=== PATIENT | male | born 1950 | race Caucasian/White ===

== ENCOUNTER → 2021-11-08 | Outpatient (CLI) | payer MEDICARE ==
[~2021-11-08] MED LIST: ACHD5005 PO; AMLO1CAP31 PO; ASP81TEC PO; CARV25TA PO; CARV6.252 PO; CLN.1T PO; DOXY-13 PO; FURO40TA4 PO; GLIM4TAB PO; HYDR-34 PO; LISI10TA PO; LORA10TA7 PO; METF-380 PO; NFNEB10T PO; OXYC-12 PO; POTA10CA43 PO; ROSU10TA12 PO; SPRN25T GT; SULF1TAB35 PO; SULF500T3 PO; TRAM50TA2 PO
== END ==
LOC: WOUNDCARE 12:22
PROVIDERS: ATTEND Family Medicine
DX: E11.52 Type 2 diabetes mellitus with diabetic peripheral angiopathy with gangrene (principal); E11.621 Type 2 diabetes mellitus with foot ulcer; I70.261 Atherosclerosis of native arteries of extremities with gangrene, right leg; L97.518 Non-pressure chronic ulcer of other part of right foot with other specified severity; I69.951 Hemiplegia and hemiparesis following unspecified cerebrovascular disease affecting right dominant side; L60.0 Ingrowing nail; L84 Corns and callosities
CPT/HCPCS: 99202

== ENCOUNTER → 2021-11-15 | Outpatient (CLI) | payer MEDICARE | LOC: WOUNDCARE 10:19 | PROVIDERS: ATTEND Family Medicine | DX: I70.235 Atherosclerosis of native arteries of right leg with ulceration of other part of foot (principal); I69.351 Hemiplegia and hemiparesis following cerebral infarction affecting right dominant side; E11.621 Type 2 diabetes mellitus with foot ulcer; L60.0 Ingrowing nail; L84 Corns and callosities | CPT/HCPCS: 99212 ==

== ENCOUNTER → 2021-12-07 | Outpatient (CLI) | payer MEDICARE ==
[~2021-12-07] VITALS: Ht 175 cm; Wt 89.0 kg
[~2021-12-07] MED LIST changes: +CATHETER FLUSH 10 ML SYR IVP PRN; +REGADENOSON 0.4 MG/5 ML SYR (LEXISCAN) IV ONE
[2021-12-07 13:34] VITALS: BP 220/74
--- NOTE | 2021-12-07 15:53 | Cardiology Stress Test Report ---
Stress Test Report Date of Procedure/Referring: Date of Procedure: Dec 07, 2021 PCP Jorje Carrion MD Admitting Physician Kyle Lawton MD Indications: HTN Baseline Heart Rate: 61 Baseline Blood Pressure: Blood Pressure Systolic: 220 Blood Pressure Diastolic: 74 Baseline Vitals Vital Signs Date Time Temp Pulse Resp B/P (MAP) Pulse Ox O2 Delivery O2 Flow Rate FiO2 12/07/21 13:34 61 220/74 (122) 98 Baseline EKG: Baseline EKG: NSR Summary After explaining the procedure to the patient, he signed a consent and then brought to the stress nuclear laboratory. Patient received 0.4 mg Lexiscan for stress test, ECG, heart rate and blood pressure were monitored continuously. Resting and stress dose of radio tracer were injected, imaging was acquired and reviewed in short axis, horizontal long axis and vertical long axis views. TID: 1.07 SSS: 10 SDS: 2 EF: 56 1. Patient tolerated Lexiscan well 2. Reversible ischemia involving the anterior wall and anterior lateral wall 3. Normal left ventricular size, EF 56% JORJE CARRION MD Dec 07, 2021 15:53
== END ==
LOC: CARD 11:30
PROVIDERS: ATTEND Internal Medicine Cardiovascular Disease
DX: I08.0 Rheumatic disorders of both mitral and aortic valves (principal); I11.9 Hypertensive heart disease without heart failure; I25.10 Atherosclerotic heart disease of native coronary artery without angina pectoris
CPT/HCPCS: 78452; 93017; 93306; A9502

== ENCOUNTER 2021-12-15 12:30 | Inpatient (IN) | payer MEDICARE ==
[~2021-12-15] VITALS: Ht 175.3 cm; Wt 8.9 kg
--- NOTE | 2021-12-15 12:28 | PM&R Post Admission Assessment ---
PM&R HP Date of Visit: Dec 15, 2021 Time of Visit: 14:00 History of Present Illness Chief complaint: Debility following left leg fasciotomy on 12/09/2021 complications from peripheral vascular procedure History present illness: This is a 71-year-old white male clinic patient of Dr. Lawton and Dr. Carrion who presented to inpatient rehab from [facility] due to debility from left leg fasciotomy on 12/09/[address] Isaac following a popl iteal artery complication during a vascular procedure for peripheral vascular disease. He has a history of a CVA with right-sided weakness and bypass surgery and postop day #2 suffered a stroke. No residual deficits noted from the acute stroke. Wound vacuum was placed on the left leg. He did receive transfusions. He will be monitored closely. Wound VAC management per Dr. Pena. CC: Debility s/p L leg Fasciotomy on 12/09/21 HPI: 71yo M with history of HTN, HLD, CVA with residual right sided weakness, CABG, and CAD presents debility from L leg fasciotomy on 12/09/[address] Isaac at [facility]. Admitted to for elective heart cath/L leg intervention and developed perforation of L popliteal artery and compartment syndrome. Hospital course: POD2 - stroke code. NIH 0. No focal deficits morning after; POD 3 - wound vac placement; POD 5 - Hbg 7.1, 2u PRBC received. Significant decline in functional mobility noted and admitted to inpatient rehab at [facility] in [place], [place] on 12/15/21. Reports previously independent with all ADLs without the use of assistive devices. PMH: CAD, HTN, T2DM PSH: CABG Allergies: NKDA Meds: Allopurinol 300mg PO HS Atorvastatin 40mg PO HS Carvedilol 25mg PO BID Eplerenone 50mg PO Furosemide 40mg PO QAM Glimepiride 4mg PO QAM Lisinopril 20mg PO QAM Loratadine 10mg PO QAM PRN Metformin 750mg PO HS Naproxen 500mg PO BID PRN Aspirin 81mg PO Clopidogrel 75mg PO SH: Former smoker ROS: Constitutional: No chills, No fever, No weakness EENTM: No ear pain, No blurred vision, No eye pain, No throat pain Respiratory: No cough, No hemoptysis, No short of breath Cardiovascular: No chest pain; edema (L Ankle); No palpitations Gastrointestinal: No constipation, No diarrhea, No nausea, No vomiting Genitourinary: No dysuria, No frequency, No incontinence Musculoskeletal: No back pain, No muscle pain, No neck pain Skin: lesions (Medial L distal extremity); No lumps, No rash Psychiatric/Neurological: Denies Headache, Denies Numbness, Denies Tingling Exam: General Appearance: No Apparent Distress, Chronically ill HEENT: PERRL/EOMI, Pharynx Normal Neck: Full Range of Motion, Normal Inspection, Non Tender, Supple Respiratory: Chest Non Tender, Lungs Clear, Normal Breath Sounds, No Accessory Muscle Use, No Respiratory Distress Cardiovascular: Regular Rate, Rhythm Gastrointestinal: Normal Bowel Sounds, Non Tender, Soft Back: Normal Inspection, No Vertebral Tenderness Extremity: Normal Capillary Refill, Normal Inspection, Normal Range of Motion, Pedal Edema, Other (L distal LE wound) Neurologic/Psychiatric: Alert, Oriented x3, Normal Mood/Affect, Motor Weakness (Residual R sided weakness from CVA 1999 and 2014) Skin: Normal Color, Warm/Dry Lymphatic: No Adenopathy Assessment: Debility s/p L Leg fasciotomy by Dr. Isaac on 12/09/21 s/p L popliteal-peroneal atherectomy complicated by fracture of CSI wire and vessel rupture by Dr. Christie 12/09/21 Acute blood loss anemia, transfused 2 unit PRBC on 12/14/21 Wound vac placement L Leg T2DM CAD Carotid Artery Stenosis PAD HLD HTN CVA (1999 and 2014) Plan: PT/OT Consult cardiology Wound care consult for possible wound vac placement Control blood sugars Past Judmfqm-Fcefdl-Twiauc Hx Past Med/Social Hx: Reviewed Nursing Past Med/Soc Hx, Reviewed and Corrections made Patient Social History Marrital Status: Employed/Student: retired Alcohol Use: Denies Use Smoking Status: Former Smoker Immunizations Up To Date Date of Pneumonia Vaccine: Sep 27, 2011 Date of Influenza Vaccine: Jul 18, 2013 Past Medical History Surgeries: Cardiac, CABG, Vascular Surgery Cardiac: Chronic Edema/Swelling, Coronary Artery Disease, High Cholesterol, Hypotension, Peripheral Vascular, Valvular Heart Disease Neurological: Stroke Reproductive: No Genitourinary: Benign Prostatic Hyperpl Gastrointestinal: Gastroesophageal Reflux Musculoskeletal: Arthritis PM&R Allergy/Meds/Data Review Allergies Coded Allergies: No Known Drug Allergies (Unverified , 10/15/11) Home Medications Scheduled Allopurinol (Allopurinol), 300 MG PO HS, (Reported) Aspirin (Aspirin EC), 81 MG PO DAILY, (Reported) Atorvastatin Calcium (Atorvastatin Calcium), 80 MG PO DAILY, (Reported) Carvedilol (Carvedilol), 25 MG PO BID, (Reported) Clopidogrel Bisulfate (Clopidogrel), 75 MG PO DAILY, (Reported) Eplerenone (Eplerenone), 50 MG PO DAILY, (Reported) Furosemide (Furosemide), 40 MG PO DAILY, (Reported) Glimepiride (Glimepiride), 4 MG PO DAILY, (Reported) Lisinopril (Lisinopril), 20 MG PO DAILY, (Reported) Lutein (Lutein), 20 MG PO DAILY, (Reported) Metformin HCl (Metformin HCl ER), 750 MG PO HS, (Reported) Multivitamin with Minerals (Multivitamins with Minerals), 1 EACH PO DAILY, (Rep orted) Scheduled PRN Loratadine (Loratadine), 10 MG PO DAILY PRN for ALLERGY SYMPTOMS, (Reported) Mupirocin Calcium (Mupirocin), 1 APPLIC TP TID PRN for SKIN INFECTION, (Reported) Naproxen (Naproxen), 500 MG PO BID PRN for PAIN-MILD (1-4), (Reported) Discontinued Medications Carvedilol (Carvedilol), 1 EACH PO BID, (Reported) Discontinued Reason: No Longer Taking Furosemide (Furosemide), 1 EACH PO DAILY, (Reported) Discontinued Reason: No Longer Taking Glimepiride (Glimepiride), 4 MG PO DAILY, (Reported) Discontinued Reason: No Longer Taking Lisinopril (Prinivil), 20 MG PO DAILY, (Reported) Discontinued Reason: No Longer Taking Loratadine (Loratadine), 10 MG PO BID, (Reported) Discontinued Reason: No Longer Taking Metformin Hcl (Metformin 1000 Mg), 1 EACH PO DAILY, (Reported) Discontinued Reason: No Longer Taking Rosuvastatin Calcium (Crestor), 1 EACH PO HS, (Reported) Discontinued Reason: No Longer Taking Spironolactone (Aldactone Tablet), 25 MG GT DAILY, (Reported) Discontinued Reason: No Longer Taking Current Medications Current Medications Reviewed Review of Systems Constitutional: see HPI, malaise, weakness EENTM: no symptoms reported Respiratory: no symptoms reported Cardiovascular: no symptoms reported Gastrointestinal: no symptoms reported Genitourinary: no symptoms reported Musculoskeletal: back pain Skin: see HPI Psychiatric/Neurological: Depressed All Other Systems Reviewed Negative Unless Noted: Yes Physical Exam Physical Exam Vital Signs Capillary Refill : Height, Weight, BMI Height: 5'9.00" Weight: 200lbs. oz. [id number]; 29.06 BMI Method:Stated General Appearance: No Apparent Distress, WD/WN, Anxious, Chronically ill, Ob diamante Eyes: Bilateral Eye Normal Inspection, Bilateral Eye PERRL HEENT: PERRL/EOMI, Normal ENT Inspection, Pharynx Normal Neck: Full Range of Motion, Normal Inspection, Non Tender, Supple, Carotid Bruit Respiratory: Chest Non Tender, Lungs Clear, Normal Breath Sounds, No Accessory Muscle Use, No Respiratory Distress Cardiovascular: Regular Rate, Rhythm, No Edema, No Gallop, No JVD, No Murmur, Normal Peripheral Pulses Gastrointestinal: Normal Bowel Sounds, No Organomegaly, No Pulsatile Mass, Non Tender, Soft Back: Normal Inspection, No CVA Tenderness, No Vertebral Tenderness Extremity: Normal Capillary Refill, Normal Inspection, Normal Range of Motion, Non Tender, No Calf Tenderness, No Pedal Edema Neurologic/Psychiatric: Alert, Oriented x3, No Motor/Sensory Deficits, shield installer II- XII Norm as Tested, Abnormal Gait, Depressed Affect, Motor Weakness (Right- sided) Skin: Normal Color, Warm/Dry, Other (Left lower extremity bandage intact) Lymphatic: No Adenopathy PM&R Medical Assessment & Plan REHAB/MEDICAL ASSESSMENT AND PLAN: REHAB IMPAIRMENT GROUP: Left leg fasciotomy with right-sided stroke acute on chronic ETIOLOGIC DIAGNOSIS: Left leg fasciotomy with right-sided stroke acute on chronic The comorbidities that impact the patients function and/or functional outcome by: Previous CVA with right-sided weakness now with acute CVA left-sided fasciotomy requiring wound VAC REHAB PLAN: The patient is being admitted to our comprehensive inpatient rehabilitation facility and can tolerate the intensity of service consisting of at least: 180 minutes of therapy a day, 5 out of 7 days a week Rehab treatment will consist of: PT and OT will focus on regaining function with use of assistive devices while managing wound VAC connection to left lower extremity The patient/family has a good understanding of our discharge process and will benefit from an interdisciplinary inpatient rehabilitation program. The patient has potential to make improvement and is in need of at least two of the following multidisciplinary therapies including but not limited to physical, occupational, speech, and prosthetics and orthotics. Additionally the patient will need services from respiratory, nutritional services, wound care, psychology, etc. (Customize this to each patient). Given the patients complex condition and risk of further medical complications, rehabilitation services cannot be safely or effectively provided at a lower level of care such as a group home facility. BARRIERS TO DISCHARGE: Wound VAC management ESTIMATED LOS: 7 days DISPOSITION: Home RELEVANT CHANGES SINCE PREADMISSION SCREENING: I have compared the patients medical and functional status at the time of the preadmission screening and there are: No changes PROGNOSIS: Good REHABILITATION GOALS: 1. PT and OT will focus on regaining function with use of assistive devices while managing wound VAC connection to left lower extremity All the above goals were reviewed with the patient and he/she is in agreement. By signing this document, I acknowledge that I have personally performed a full physical examination on this patient within 24 hours of admission to this inpatient rehabilitation facility and have determined the patient to be able to tolerate the above course of treatment at an intensive level for a reasonable period of time. I will be completing a detailed individualized Plan of Care for this patient by day #4 of the patients stay based upon the Preadmission Screen, the Post-Admission Evaluation, and the therapy evaluations. Admission Dx/Comorbidities: (1) Myopathy ICD Codes: G72.9 - Myopathy, unspecified Assessment/Plan Assessment and Plan Assess & Plan/Chief Complaint Assessment: Left lower extremity fasciotomy due to complications from peripheral vascular procedure by Dr. Isaac 12/09/2021 with wound VAC placement Acute CVA with no residual during acute episode of complication Chronic CVA with right-sided weakness Hypertension CAD Previous CABG Plan: Consult Dr. Carrion Supportive care Aggressive rehab Wound VAC SIDNEY ORR DO Dec 15, 2021 12:28
[~2021-12-15 12:30] MED LIST changes: +ACETAMINOPHEN 325 MG TABLET PO PRN; +ALLO300T2 PO; +ALPRAZolam 0.25 MG (XANAX) TAB PO PRN; +ASPI-1238 PO; +ATOR80TA76 PO; +BISACODYL 10 MG SUPP (DULCOLAX) PR PRN; +CALCIUM CARBONATE 500 MG (TUMS) TAB.CHEW PO PRN; -CATHETER FLUSH 10 ML SYR IVP PRN; +CLOP75TA28 PO; +DOCUSATE SODIUM 100 MG (COLACE) CAP PO PRN; +EPLE50TA3 PO; +FLEET ENEMA ADULT 1 EA BTL PR PRN; +GLIM4TAB5 PO; +LACTULOSE SYRUP 10GM/15ML (ENULOSE) 30ML UDC PO PRN; +LISI20TA26 PO; +LOPERAMIDE 2 MG (IMODIUM) TABLET PO PRN; +LUTE20TA PO; +MELATONIN 3 MG TABLET PO PRN; +METF750T45 PO; +MULT-166 PO; +MUPI15CR11 TP; +NAPR-915 PO; +ONDANSETRON 4 MG (ZOFRAN) ORAL DISSOLVE TAB PO PRN; -REGADENOSON 0.4 MG/5 ML SYR (LEXISCAN) IV ONE; +diphenhydrAMINE 25 MG TAB (BENADRYL) PO PRN; +guaiFENesin/CODEINE (ROBITUSSIN AC) 10ML UDC PO PRN
[2021-12-15] MEDS ORDERED: MUPIROCIN CALCIUM TP PRN (13:00)
[2021-12-15] MEDS ORDERED: NON-FORMULARY MEDICATION 1 EA EA (Naproxen 500 MG) PO PRN (13:00)
[2021-12-15] MEDS ORDERED: LORATADINE (CLARITIN) 10 MG TAB PO PRN (13:00)
[2021-12-15] MEDS ORDERED: MUPIROCIN 2% OINT 22 GM (BACTROBAN) TUBE TOP PRN (13:15)
[2021-12-15] MEDS ORDERED: NAPROXEN 250 MG (NAPROSYN) TABLET PO PRN (13:15)
[2021-12-15 13:30] VITALS: BP 167/71
--- NOTE | 2021-12-15 13:46 | Occupational Therapy Eval ---
OT Evaluation-General/PLF Medical Diagnosis Admission Date Dec 15, 2021 at 12:30 Medical Diagnosis: disuse myopathy Onset Date: Dec 09, 2021 Therapy Diagnosis Therapy Diagnosis: decreased ADL status Height/Weight Height (Feet): 5 Height (Inches): 9.00 Weight (Pounds): 200 Referral Physician: Rosario White Reason: Evaluation/Treatment Medical History Additional Medical History HTN, hyperlipidemia, CABG, CAD, CVA (1999 & 2004) with residual R side weakness Current History admitted with elective heart and leg intervention, developed perforation of L popliteal artery and underwent fasciotomy for compartment syndrome, wound VAC placed at OSH. Pt transferred to ARU 12/15/21 for continued skilled therapy and medication management Social History Home: Multilevel Current Living Status: Spouse (, daughter and grandson) Steps Into Home: 1 ADL-Prior Level of Function SCALE: Activities may be completed with or without assistive devices. 4-Patswirihy-liaukqg completes the activity by him/herself with no assistance from a helper. 5-Set-up or Clean-up Assistance-helper sets up or cleans up; patient completes activity. [place] assists only prior to or following the activity. 4-Supervision or Touching Assistance-helper provides verbal cues and/or touching/steadying and/or contact guard assistance as patient completes activity. Assistance may be provided throughout the activity or intermittently. 3-Partial/Moderate Assistance-helper does LESS THAN HALF the effort. [place] lif ts, holds or supports trunk or limbs, but provides less than half the effort. 2-Substantial/Maximal Assistance-helper does MORE THAN HALF the effort. [place] lifts or holds trunk or limbs and provides more than half the effort. 1-Tjurpdipl-uzdixw does ALL the effort. Patient does none of the effort to complete the activity. Or, the assistance of 2 or more helpers is required for the patient to complete the activity. If activity was not attempted, code reason: 7-Patient Refused. 9-Not Applicable-not attempted and the patient did not perform the activity before the current illness, exacerbation or injury. 10-Not Attempted due to Environmental Limitations-(lack of equipment, weather restraints, etc.). 88-Not Attempted due to Medical Conditions or Safety Concerns. ADL PLOF Comments Pt reports IND with ADLs and functional mobility at [facility], using 4WW for mobility. He lives in a 2 story house but primarily stays on the first level. He has a tub/shower and a walk in shower on the main level. The shower has a built in seat and he believes he owns a SC. Self Care: Independent Functional Cognition: Independent DME/Equipment: Bath Chair, Shower, Tub/Shower OT Current Status Mental Status/Objective Patient Orientation: Person, Place, Situation Current Glasses/Contacts: Yes Hearing Aids: No Dentures/Partials: Yes Hand Dominance: Right (has had to use L hand more since CVAs) Upper Extremity ROM WFL, BUE shoulder flexion to approx 150 degrees Upper Extremity Coordination decreased RUE, pt's RUE "lagged" behind the L with ROM, decreased gross grasp and fine motor in R hand. Upper Extremity Sensation WFL Upper Extremity Strength RUE grossly 3+/5 LUE grossly 4/5 ADL-Treatment Eating (QC): 6 (Per pt report) Oral Hygiene (QC): 5 (Per clincial judgment, set up seated) Shower/Bathe Self (QC): 3 (Min A with washing buttocks. Pt able to wash all other parts seated.) Upper Body Dressing (QC): 5 (set up) Lower Body Dressing (QC): 3 (Min A. pt able to doff pants, required assistance threading LLE into pants. Pt able to complete pant hike and thread RLE) On/Off Footwear (QC): 3 (Pt able to doff Bilateral shoes, required assistance donning L. Pt able to don R.) Toileting Hygiene (QC): 3 (Pt stood at toilet to urinate, able to manipulate clothes. Min A-CGA for balance.) Other Treatments OT evaluation complete. OT/PT cotreat due to skill of 2 clinicians required which a vocational rehabilitation counselor could not perform in order to coordinate UE/LEs, decrease fall risk and due to pt's limitations in strength, activity tolerance, transfers and mobility. OT focused on UE placement, cues for sequencing and safety, and ADLs, PT focused on LE placement, gross overall movement, transfers/mobility. Pt completed functional transfers/mobility in therapy gym including bed mobility, supine to/from sit transfers, functional mobility with FWW, sit to/from stand, uneven surface, and w/c mobility. Pt taken to his room, transferred to AL, doffed clothes, completed shower, then donned clothes as outlined above. Pt stood from AL, used FWW to stand at toilet to urinate, then transferred to /. Post tx, pt in w/c, all needs met, NOVAK present to continue cotreat. Education OT Patient Education: Correct positioning, Energy conservation, Exercise program, Modified ADL techniques, Progress toward Goal/Update tx plan, Purpose of tx/functional activities, Reviewed precautions Teaching Recipient: Patient Teaching Methods: Discussion Response to Teaching: Verbalize Understanding OT Short Term Goals Short Term Goals Time Frame: Dec 23, 2021 Shower/bathe self: 4 Lower body dressin Putting on/taking off footwear: 4 OT Prison Goals Federal Agent Goals Time Frame: Jan 06, 2022 Eating (QC): 6 Oral Hygiene (QC): 6 Toileting Hygiene (QC): 6 Shower/Bathe Self (QC): 6 Upper Body Dressing (QC): 6 Lower Body Dressing (QC): 6 On/Off Footwear (QC): 6 Additional Goals: 1-Demonstrate ADL Tasks, 2-Verbalize Understanding, 3-ImproveStrength/Robert 1=Demonstrate adherence to instructed precautions during ADL tasks. 2=Patient will verbalize/demonstrate understanding of assistive devices/modifications for ADL. 3=Patient will improve strength/tolerance for activity to enable patient to perform ADL's. OT Education/Plan Problem List/Assessment Assessment: Decreased Activ Tolerance, Decreased UE Strength, Impaired Coordination, Impaired Funct Balance, Impaired I ADL's, Impaired Self-Care Skills, Restricted Funct UE ROM Discharge Recommendations Plan/Recommendations: Continue POC Treatment Plan/Plan of Care Patient would benefit from OT for education, treatment and training to promote independence in ADL's, mobility, safety and/or upper extremity function for ADL's. Plan of Care: ADL Retraining, Functional Mobility, Group Exercise/Act as Ind, UE Funct Exercise/Act Treatment Duration: Jan 06, 2022 Frequency: At least 5 of 7 days/Wk (IRF) Estimated Hrs Per Day: 1.5 hours per day Agreement: Yes Rehab Potential: Fair Time/GCodes Start Time: 12:40 Stop Time: 13:40 Total Time Billed (hr/min): 60 Billed Treatment Time 4608-0229 OT eval, [id number] OT/PT cotreat. 1, EVM (10'), FA (20'), ADL 2 (30') NOE SPARKS OT Dec 15, 2021 13:46
--- NOTE | 2021-12-15 14:07 | Physical Therapy Evaluation ---
PT Evaluation-General Medical Diagnosis Admission Date Dec 15, 2021 at 12:30 Medical Diagnosis: disuse myopathy Onset Date: Dec 09, 2021 Therapy Diagnosis Therapy Diagnosis: Impaired mobility, Strength, Ambulation, balance. Height/Weight Height (Feet): 5 Height (Inches): 9.00 Weight (Pounds): 200 Precautions Precautions/Isolations: Standard Precautions Weight Bear Status Full Weight Bearing Full Weight Bearing Referral Physician: Rosario Reason for Referral: Evaluation/Treatment Medical History Pertinent Medical History: CABG, CVA, HTN Current History admitted with elective heart and leg intervention, developed perforation of L popliteal artery and underwent fasciotomy for compartment syndrome, wound VAC placed at OSH. Pt transferred to ARU 12/15/21 for continued skilled therapy and medication management Reviewed History: Yes Social History Home: Multilevel Current Living Status: Spouse (, daughter and grandson) Entry Into Home: Stairs Without Railing PT Steps Into Home: 1 Prior Prior Level of Function SCALE: Activities may be completed with or without assistive devices. 8-Nktcniikmi-ppbwdjf completes the activity by him/herself with no assistance from a helper. 5-Set-up or Clean-up Assistance-helper sets up or cleans up; patient completes activity. [place] assists only prior to or following the activity. 4-Supervision or Touching Assistance-helper provides verbal cues and/or touching/steadying and/or contact guard assistance as patient completes activity. Assistance may be provided throughout the activity or intermittently. 3-Partial/Moderate Assistance-helper does LESS THAN HALF the effort. [place] lifts, holds or supports trunk or limbs, but provides less than half the effort. 2-Substantial/Maximal Assistance-helper does MORE THAN HALF the effort. [place] lifts or holds trunk or limbs and provides more than half the effort. 7-Ybnyvobhv-rhtaeu does ALL the effort. Patient does none of the effort to complete the activity. Or, the assistance of 2 or more helpers is required for the patient to complete the activity. If activity was not attempted, code reason: 7-Patient Refused. 9-Not Applicable-not attempted and the patient did not perform the activity before the current illness, exacerbation or injury. 10-Not Attempted due to Environmental Limitations-(lack of equipment, weather restraints, etc.). 88-Not Attempted due to Medical Conditions or Safety Concerns. Bed Mobility: 6 Transfers (B,C,W/C): 6 Gait: 6 Stairs: 6 Indoor Mobility (Ambulation): Independent Stairs: Independent Prior Device Use: 4 events traffic controller walker PT Evaluation-Current Subjective Patient was brought with , but she did not stay with him today. Patient was alert & oriented and motivated. Patients wound was on Left leg and was wrapped with gauze. Slight light-reddish weeping was noticed on bandage, and wound nurse was notified. Patient states that his R side of his body was weak due to a previous stroke. Pain Numeric Pain Scale: 1 Location: Posterior Location Body Site: Calf Pt/Family Goals to be independent at home Objective Patient Orientation: Person, Place, Time, Situation ROM/Strength ROM Lower Extremities Bilaterally grossly WFL Strength Lower Extremities RLE: (Hip Flexion 4+/5, Knee extension 4+/5, Knee Flexion 4/5, DF 4+/5); LLE (Hip Flexion 4+/5, Knee extension 4/5, Knee Flexion 3+/5, DF 4+/5) Integumentary/Posture Integumentary Wound on Left Lower leg and Foot. Scabs on R hallux Bowel Incontinence: No Bladder Incontinence: No Sensory Vision: Functional Hearing: Functional Hand Dominance: Right (has had to use L hand more since CVAs) Sensation Right Lower Extremit: Intact Sensation Left Lower Extremity: Impaired Transfers Roll Left & Right (QC): 6 Sit to Lying (QC): 5 Lying to Sitting/Side of Bed(Q: 5 Sit to Stand (QC): 3 Chair/Auo-of-Gocom Xfer(QC): 3 Toilet Transfer (QC): 3 Car Transfer (QC): 2 Gait Does the Patient Walk?: Yes Mode of Locomotion: Both Anticipated Mode of Locomotion: Walk Walk 10 feet (QC): 4 Walk 50 ft with 2 Turns(QC): 3 Walk 150 ft (QC): 88 Walking 10ft/uneven surface-QC: 4 Distance: 20', 10', 80' Gait Assistive Device: FWW Wheelchair Training Does the Pt Use a Wheelchair?: Yes Distance: 50 Wheel 50 ft with 2 turns (QC): 3 Wheel 150 ft (QC): 88 Type of Wheelchair: Manual Stairs #of Steps: 1 1 Step (curb) (QC): 3 4 Steps (QC): 88 12 Steps (QC): 88 Walking Assistive Device: Walker Balance Sitting Static: Normal Sitting Dynamic: Normal Standing Static: Poor Standing Dynamic: Poor Picking up an Object (QC): 4 (using a rn imcu) Treatment LE strength, balance, ambulation, mobility Standing for 10min while OT performed UE activities. Assessment/Needs Patient was weak with all transfers requiring modAx1, ambulation requiring minAx1. Patient hyperextended during stance phase on R side secondary to weakness. During standing activities, patient had a crouch stance, and had to constantly hold himself up in the parrallel bars with UE. Rehab Potential: Fair PT Short Term Goals Short Term Goals Time Frame: Dec 22, 2021 Roll Left & Right: 6 Sit to lyin Lying to sitting on side of be: 6 Sit to stand: 4 (CGA) Chair/eqj-xd-lnkwh transfer: 4 (CGA) Toilet transfer: 4 (CGA) Car transfer: 4 (CGA) Walk 10 feet: 4 (CGA) Walk 50 feet with two turns: 4 (CGA) Walk 150 feet: 4 (CGA) Walking 10ft on uneven surface: 4 (CGA) 1 step (curb): 4 (CGA) Does pt use a wc or scooter: No Type: N/A PT Detailer Goals Detailer Goals PT Detailer Goals Time Frame: Jan 05, 2022 Roll Left & Right (QC): 6 Sit to Lying (QC): 6 Lying-Sitting on Side/Bed(QC): 6 Sit to Stand (QC): 6 Chair/Zcv-we-Mksje Xfer(QC): 6 Toilet Transfer (QC): 6 Car Transfer (QC): 6 Does the Patient Walk: Yes Walk 10 feet (QC): 6 Walk 50ft with 2 Turns (QC): 6 Walk 150 ft (QC): 6 Walking 10ft on Uneven Surface: 6 1 Step (curb) (QC): 6 4 Steps (QC): 6 12 Steps (QC): 6 Picking up an Object (QC): 6 Does the Pt use WC or Scooter?: Yes Wheel 50 feet with 2 turns (QC: 6 Type: Manual Wheel 150 feet: 6 Type: Manual PT Plan Problem List Problem List: Activity Tolerance, Functional Strength, Safety, Balance, Gait, Transfer, ROM Treatment/Plan Treatment Plan: Continue Plan of Care Treatment Plan: Bed Mobility, Education, Functional Activity Robert, Functional Strength, Group Therapy, Gait, Safety, Therapeutic Exercise, Transfers Treatment Duration: Jan 05, 2022 Frequency: At least 5 of 7 days/Wk (IRF) Estimated Hrs Per Day: 1.5 hours per day Patient and/or Family Agrees t: Yes Safety Risks/Education Patient Education: Gait Training, Transfer Techniques, Steps, Reviewed Precautions, Correct Positioning, W/C Management, Safety Issues Teaching Recipient: Patient Teaching Methods: Demonstration, Discussion Response to Teaching: Return Demonstration, Reinforcement Needed Discharge Recommendations Plan To continue working on LE strengthening, Dynamic standing balance/tolerance, ambulation, education Therapy Discharge Recommendati: Home & Family, Post Acute PT Time/GCodes Time In: 1230 Time Out: 1410 Total Billed Treatment Time: 90 Total Billed Treatment 1 visit EVM 10' EX 15' FA 65' PT eval from [id number], OT eval from [id number], co-treat from [id number] LINDA ESCALONA PT Dec 15, 2021 14:07
--- NOTE | 2021-12-15 14:27 | Occupational Ther Daily Note ---
OT Current Status-Daily Note Subjective Took over care from OTR/L. Co-treat with PT ([id number]), skills of 2 clinicians required to decrease fall risk, increase functional mobility, increase dynamic standing while incorporating one UE while other is stabilizing. PT focusing on standing and ambulation while OT focusing on B UE coordination and functional movement during standing. Mental Status/Objective Patient Orientation: Person, Place, Time, Situation ADL-Treatment Therapy Code Descriptions/Definitions Functional [place] Measure: 0=Not Assessed/NA 4=Minimal Assistance 1=Total Assistance 5=Supervision or Setup 2=Maximal Assistance 6=Modified [place] 3=Moderate Assistance 7=Complete IndependenceSCALE: Activities may be completed with or without assistive devices. 8-Fyyxqpnevl-fqerwib completes the activity by him/herself with no assistance from a helper. 5-Set-up or Clean-up Assistance-helper sets up or cleans up; patient completes activity. [place] assists only prior to or following the activity. 4-Supervision or Touching Assistance-helper provides verbal cues and/or touching/steadying and/or contact guard assistance as patient completes activity. Assistance may be provided throughout the activity or intermittently. 3-Partial/Moderate Assistance-helper does LESS THAN HALF the effort. [place] lifts, holds or supports trunk or limbs, but provides less than half the effort. 2-Substantial/Maximal Assistance-helper does MORE THAN HALF the effort. [place] lifts or holds trunk or limbs and provides more than half the effort. 3-Jibjaphnt-hpbwfz does ALL the effort. Patient does none of the effort to complete the activity. Or, the assistance of 2 or more helpers is required for the patient to complete the activity. If activity was not attempted, code reason: 7-Patient Refused. 9-Not Applicable-not attempted and the patient did not perform the activity before the current illness, exacerbation or injury. 10-Not Attempted due to Environmental Limitations-(lack of equipment, weather restraints, etc.). 88-Not Attempted due to Medical Conditions or Safety Concerns. Eating (QC): 6 (Pt able to open containers/packages by self then uses regular utensils to eat.) Other Treatment Pt stood at parallel bars stabilizing self with one UE while other UE completed coordination and strengthening tasks. Pt tolerated each activity well though began to melt into chair then had to stand back up to finish task. Pt demonstr ates decrease in coordination and fluent ROM with R UE and decrease coordination and strength with L UE. After therapy, pt sitting in recliner with call light/phone in reach. All needs met in room. OT Short Term Goals Short Term Goals Time Frame: Dec 23, 2021 Shower/bathe self: 4 Lower body dressin Putting on/taking off footwear: 4 OT Sales Manager [place] Goals Sales Manager [place] Goals Time Frame: Jan 06, 2022 Eating (QC): 6 Oral Hygiene (QC): 6 Toileting Hygiene (QC): 6 Shower/Bathe Self (QC): 6 Upper Body Dressing (QC): 6 Lower Body Dressing (QC): 6 On/Off Footwear (QC): 6 Additional Goals: 1-Demonstrate ADL Tasks, 2-Verbalize Understanding, 3- ImproveStrength/Robert 1=Demonstrate adherence to instructed precautions during ADL tasks. 2=Patient will verbalize/demonstrate understanding of assistive devices/modifications for ADL. 3=Patient will improve strength/tolerance for activity to enable patient to perform ADL's. OT Education/Plan Problem List/Assessment Assessment: Decreased Activ Tolerance, Decreased UE Strength, Impaired Self- Care Skills, Restricted Funct UE ROM Discharge Recommendations Plan/Recommendations: Continue POC Treatment Plan/Plan of Care Patient would benefit from OT for education, treatment and training to promote independence in ADL's, mobility, safety and/or upper extremity function for ADL's. Plan of Care: ADL Retraining, Functional Mobility, Group Exercise/Act as Ind, UE Funct Exercise/Act Treatment Duration: Jan 06, 2022 Frequency: At least 5 of 7 days/Wk (IRF) Estimated Hrs Per Day: 1.5 hours per day Agreement: Yes Rehab Potential: Fair Time/GCodes Start Time: 13:40 Stop Time: 14:10 Total Time Billed (hr/min): 30 Billed Treatment Time 1 visit-ADL 1 (10 min) EX 1 (20 min) co-treat with PT 30 min BROOKE HEREDIA Dec 15, 2021 14:27
[2021-12-15] MEDS ORDERED: HYDROcodone/APAP 5 MG/325 MG (LORTAB) TAB PO PRN ×2 (15:30→17:00)
--- NOTE | 2021-12-15 15:38 | Progress Note ---
ROBERTA CORTES 12/15/21 1538: Progress Note CC: Debility s/p L leg Fasciotomy on 12/09/21 HPI: 71yo M with history of HTN, HLD, CVA with residual right sided weakness, CABG, and CAD presents debility from L leg fasciotomy on 12/09/[address] Isaac at [place]. Admitted to for elective heart cath/L leg intervention and developed perforation of L popliteal artery and compartment syndrome. Hospital course: POD2 - stroke code. NIH 0. No focal deficits morning after; POD 3 - wound vac placement; POD 5 - Hbg 7.1, 2u PRBC received. Significant decline in functional mobility noted and admitted to inpatient rehab at [facility] in [place], [place] on 12/15/21. Reports previously independent with all ADLs without the use of assistive devices. PMH: CAD, HTN, T2DM PSH: CABG Allergies: NKDA Meds: Allopurinol 300mg PO HS Atorvastatin 40mg PO HS Carvedilol 25mg PO BID Eplerenone 50mg PO Furosemide 40mg PO QAM Glimepiride 4mg PO QAM Lisinopril 20mg PO QAM Loratadine 10mg PO QAM PRN Metformin 750mg PO HS Naproxen 500mg PO BID PRN Aspirin 81mg PO Clopidogrel 75mg PO SH: Former smoker ROS: Constitutional: No chills, No fever, No weakness EENTM: No ear pain, No blurred vision, No eye pain, No throat pain Respiratory: No cough, No hemoptysis, No short of breath Cardiovascular: No chest pain; edema (L Ankle); No palpitations Gastrointestinal: No constipation, No diarrhea, No nausea, No vomiting Genitourinary: No dysuria, No frequency, No incontinence Musculoskeletal: No back pain, No muscle pain, No neck pain Skin: lesions (Medial L distal extremity); No lumps, No rash Psychiatric/Neurological: Denies Headache, Denies Numbness, Denies Tingling Exam: General Appearance: No Apparent Distress, Chronically ill HEENT: PERRL/EOMI, Pharynx Normal Neck: Full Range of Motion, Normal Inspection, Non Tender, Supple Respiratory: Chest Non Tender, Lungs Clear, Normal Breath Sounds, No Accessory Muscle Use, No Respiratory Distress Cardiovascular: Regular Rate, Rhythm Gastrointestinal: Normal Bowel Sounds, Non Tender, Soft Back: Normal Inspection, No Vertebral Tenderness Extremity: Normal Capillary Refill, Normal Inspection, Normal Range of Motion, Pedal Edema, Other (L distal LE wound) Neurologic/Psychiatric: Alert, Oriented x3, Normal Mood/Affect, Motor Weakness (Residual R sided weakness from CVA 1999 and 2014) Skin: Normal Color, Warm/Dry Lymphatic: No Adenopathy Assessment: Debility s/p L Leg fasciotomy by Dr. Isaac on 12/09/21 s/p L popliteal-peroneal atherectomy complicated by fracture of CSI wire and vessel rupture by Dr. Christie 12/09/21 Acute blood loss anemia, transfused 2 unit PRBC on 12/14/21 Wound vac placement L Leg T2DM CAD Carotid Artery Stenosis PAD HLD HTN CVA (1999 and 2014) Plan: PT/OT Consult cardiology Wound care consult for possible wound vac placement Control blood sugars ORLY ORR DO 12/15/212051: Supervisory-Addendum Brief Verification & Attestation Participated in pt care: history, MDM, physical Personally performed: exam, history, MDM, supervision of care Care discussed with: Medical Student Procedures: n/a Results interpretation: Verified all documentation Verification and Attestation of Medical Student E/M Service A medical student performed and documented this service in my presence. I reviewed and verified all information documented by the medical student and made modifications to such information, when appropriate. I personally performed the physical exam and medical decision making. Orly Orr Dec 15, 2021,20:51 ROBERTA CORTES Dec 15, 2021 15:38 ORLY ORR DO Dec 15, 2021 20:52
--- NOTE | 2021-12-15 15:55 | Wound Care Assessment ---
Wound Care Assessment Date Seen by Provider: Dec 15, 2021 Time Seen by Provider: 15:49 Chief Complaint Fasciotomy LLE HPI This pleasant 71 year old gentleman was a patient of mine briefly in the outpatient clinic. He came to me with a diabetic foot wound on the right great toe which quickly healed by the second office visit. However, we did do arterial testing at his first visit revealing peripheral arterial disease. I have not yet reviewed Guevara's records but it sounds like he had an arterial intervention per Dr. Christie last Sunday which unfortunately ended with significant bleeding and a resulting compartment syndrome. He was emergently taken to the OR with fasciotomies performed by Dr. Isaac. He returns to [facility] on the rehab side with plans for continued wound vac (had 6 days prior to transfer) and PT/OT for strengthening. He no longer has a foot ulcer. Guevara does not have current signs of infection but he does have significant edema and pain at site of wound. I do plan to start broad spectrum antibiotic (doxy) and hydrocodone for pain prior to vac dressing changes (plan for and Mondays). We will need to protect underlying muscle and tendon with adaptic and white foam. Dressings currently saturated and we will need to monitor closely for continued blood loss. He does have baseline pallor and received 2 U PRBC's recently. Past Medical History: Admits Diabetes Type II, Admits Peripheral Artery Disease Compartment syndrome, acute hemorrhage (intraoprative), Obesity Smoking Status: Former Smoker Review of Systems General: Fatigue Cardiovascular: Edema Musculoskeletal: leg pain Neurological: Weakness Exam Vital Signs Date Time Temp Pulse Resp B/P (MAP) Pulse Ox O2 Delivery O2 Flow Rate FiO2 12/15/21 13:30 37.0 75 18 167/71 (103) 97 Room Air Capillary Refill : General Appearance: WD/WN, no apparent distress Neck: full range of motion Cardiovascular: other (edema LLE) Respiratory: no respiratory distress, no accessory muscle use Extremities: normal range of motion, pedal edema Neurologic/Psychiatric: alert, normal mood/affect, oriented x 3 Skin: pallor Skin Problem Location: lower extremities Wound assessment: 1. L. medial fasciotomy: 27x6.4x1.3 cm. The epithelialization is none, there is tunneling at 12 o'clock 2.2cm. The drainage is large and serosanguinous, Granulation is small and pink, necrotic is small and slough. Margins show epibole. Muscle, tendon and fascia are exposed 2. L. Lateral fasciotomy: 25.5x4.5x1 cm. The epithelialization is none, there is no tunneling or undermining, the drainage is large and serosanguinous, granulation is small and pink, necrotic is small and slough and eschar, margins show epibole. Muscle, tendon and fascia are exposed. Assessment/Plan/Dx Assessment: 1. Left lower extremity fasciotomy incisions 2. Compartment syndrome 3. Suspected anemia of blood loss 4. DM2 5. PAD Plan: 1. Wound vac therapy to initiate for dressing changes on and Mondays. Suction at 125 with adaptic and white foam to deep structures/tunneling. Empiric Doxycycline and hydrocodone prn for pain 2. As above 3. Will check CBC if not already done. Monitor bleeding as we proceed 4. Defer diabetic control to primary team 5. Patient remains on ASA and Plavix. JAMAICA MATHEWS MD Dec 15, 2021 15:55
[2021-12-15] MEDS: DOXYCYCLINE 100 MG (VIBRAMYCIN) TABLET PO SCH (17:35)
[2021-12-15] MEDS ORDERED: metFORMIN XR 500 MG (GLUCOPHAGE XR) TAB PO SCH (18:00)
[2021-12-15 19:32] VITALS: BP 187/80
[2021-12-15] MEDS ORDERED: ALLOPURINOL 300 MG (ZYLOPRIM) TAB PO SCH (21:00)
[2021-12-15] MEDS ORDERED: NON-FORMULARY MEDICATION 1 EA EA (Metformin HCl (Metformin HCl ER) 750 MG) PO SCH (21:00)
[2021-12-15] MEDS ORDERED: NON-FORMULARY MEDICATION 1 EA EA (Carvedilol 25 MG) PO SCH (21:00)
[2021-12-15] MEDS: polyethylene glycoL POWDER 17 GM (MIRALAX) PACK PO SCH (21:30)
[2021-12-15] MEDS: DOCUSATE SODIUM 100 MG (COLACE) CAP PO SCH (21:30)
[2021-12-15] MEDS: SENNA W/DOCUSATE (SENOKOT S) TABLET PO SCH (21:30)
[2021-12-15 22:16] VITALS: BP 155/70
[2021-12-16 02:00] VITALS: BP 181/67
[2021-12-16 04:22] VITALS: BP 133/59
[2021-12-16 05:36] LABS: BASOPHILS % (AUTO) 0 % (0-10); EOSINOPHILS # (AUTO) 0.2 10^3/uL (0.0-0.3); EOSINOPHILS % (AUTO) 2 % (0-10); HEMATOCRIT 29 % (40-54); HEMOGLOBIN 9.8 g/dL (13.3-17.7); LYMPHOCYTES # (AUTO) 1.4 10^3/uL (1.0-4.0); LYMPHOCYTES % (AUTO) 15 % (12-44); MEAN CORPUSCULAR HEMOGLOBIN 30 pg (25-34); MEAN CORPUSCULAR HGB CONC 33 g/dL (32-36); MEAN CORPUSCULAR VOLUME 88 fL (80-99); MEAN PLATELET VOLUME 10.1 fL (9.0-12.2); MONOCYTES # (AUTO) 1.2 10^3/uL (0.0-1.0); MONOCYTES % (AUTO) 13 % (0-12); NEUTROPHILS # (AUTO) 6.3 10^3/uL (1.8-7.8); NEUTROPHILS % (AUTO) 68 % (42-75); PLATELET COUNT 196 10^3/uL (130-400); WHITE BLOOD COUNT 9.2 10^3/uL (4.3-11.0)
[2021-12-16 05:50] LABS: ALBUMIN 3.2 GM/DL (3.2-4.5); POTASSIUM 4.1 MMOL/L (3.6-5.0)
[2021-12-16 05:51] LABS: CALCIUM 8.7 MG/DL (8.5-10.1)
[2021-12-16 05:52] LABS: TOTAL PROTEIN 6.2 GM/DL (6.4-8.2)
[2021-12-16 05:54] LABS: BILIRUBIN,TOTAL 0.5 MG/DL (0.1-1.0)
[2021-12-16 05:56] LABS: CREATININE SERUM 0.84 MG/DL (0.60-1.30)
[2021-12-16] MEDS: DOXYCYCLINE 100 MG (VIBRAMYCIN) TABLET PO SCH (06:41)
[2021-12-16] MEDS ORDERED: GLIMEPIRIDE 4 MG (AMARYL) TAB PO SCH (07:00)
[2021-12-16 07:27] VITALS: BP 119/58
[2021-12-16] MEDS ORDERED: NON-FORMULARY MEDICATION 1 EA EA (Lutein 20 MG) PO SCH (09:00)
[2021-12-16] MEDS ORDERED: EPLERENONE 50 MG PO SCH (09:00)
[2021-12-16] MEDS ORDERED: MULTIVIT W/MINERALS TAB (THERAGRAN M) PO SCH (09:00)
[2021-12-16] MEDS ORDERED: CLOPIDOGREL 75 MG (PLAVIX) TABLET PO SCH (09:00)
[2021-12-16] MEDS ORDERED: FUROSEMIDE 40 MG (LASIX) TAB PO SCH (09:00)
[2021-12-16] MEDS ORDERED: lisINopril 20 MG (PRINIVIL) TABLET PO SCH (09:00)
[2021-12-16] MEDS ORDERED: ASPIRIN E.C. 81 MG (ECOTRIN) TAB PO SCH (09:00)
[2021-12-16 09:37] VITALS: BP 116/58
--- NOTE | 2021-12-16 09:46 | Occ Therapy Progress Note ---
Therapy Progress Note Pt refusing all therapy this morning. hotel operations manager notified and went in to speak to patient. Pt still refusing. OT to attempt again later this afternoon. Irena Nuno OT Dec 16, 2021 09:46
[2021-12-16] MEDS: SENNA W/DOCUSATE (SENOKOT S) TABLET PO SCH (09:50)
--- NOTE | 2021-12-16 10:01 | Progress Note ---
Subjective Date Seen by Provider: Dec 16, 2021 Time Seen by Provider: 09:51 Subjective/Events-last exam I was called to the room this morning due to patient/family concerns about wound vac. We initiated wound vac therapy last night upon transfer from [facility] to our inpatient rehab unit. Prior to admission he had wound vac therapy in place at [facility] [facility] for 6 days. This was d/c'd upon transfer and wet to dry dressings initiated until replacement of vac in our facility. Please refer to my note yesterday for full details. Wound assessment yesterday revealed exposed muscle, tendon and fascia (as expected with fasciotomy). The muscle did appear somewhat inflamed and he did have significant oozing of blood (he remains on ASA and Plavix per patient report/records). We protected exposed muscle with adaptic and tendon with white foam. I left the suction at factory preset of 125 instead of increasing suction due to report of recent bleeding and need for blood transfusion prior to transfer. Through the night patient verbalized significant concerns about minimal drainage from wound vac. On my visualization this a.m. there is drainage in the canister but not large amounts. The machine is not alarming and suction appears intact. The patient had questions yesterday about white foam and adaptic. My suspicion is that granulofoam only was used at [facility] prior (though this is not confirmed as of yet with records) and it is likely the amount of drainage was related to the more porous foam as well as more acute bleeding due to recent surgical intervention. When I spoke with Mr. Barajas and his they had several questions which I answered (including about the decreased drainage). I did also mention reasons for concern would be vitals changes (very stable this a.m.), increased pain, increased swelling, and discoloration of digits/temperature. He does not appear to have any of these and his calves were measured multiple times through the night without changes. They did verbalize understanding. I did not remove the wound vac but did offer to do so. If they decide as such the wound vac nurse will remove and call/text if reevaluation is necessary. I did also remind them that it is their right to leave our facility and we cannot hold them against their will. They stated that they would discuss and make a decision following our leaving the room. We will support them in their decision and assist in transfer should that be their choice. Review of Systems General: Fatigue Cardiovascular: Edema Musculoskeletal: leg pain Neurological: Weakness Objective Exam Last Set of Vital Signs Vital Signs Date Time Temp Pulse Resp B/P (MAP) Pulse Ox O2 Delivery O2 Flow Rate FiO2 12/16/21 09:37 36.8 68 18 116/58 (77) 96 Room Air Capillary Refill : Results Lab Laboratory Tests 12/16/21 05:00: White Blood Count 9.2, Red Blood Count 3.32L, Hemoglobin 9.8L, Hematocrit 29L, Mean Corpuscular Volume 88, Mean Corpuscular Hemoglobin 30, Mean Corpuscular Hemoglobin Concent 33, Red Cell Distribution Width 16.2H, Platelet Count 196, Mean Platelet Volume 10.1, Immature Granulocyte % (Auto) 1, Neutrophils (%) (Auto) 68, Lymphocytes (%) (Auto) 15, Monocytes (%) (Auto) 13H, Eosinophils (%) (Auto) 2, Basophils (%) (Auto) 0, Neutrophils # (Auto) 6.3, Lymphocytes # (Auto) 1.4, Monocytes # (Auto) 1.2H, Eosinophils # (Auto) 0.2, Basophils # (Auto) 0.0, Immature Granulocyte # (Auto) 0.1, Sodium Level 133L, Potassium Level 4.1, Chloride Level 101, Carbon Dioxide Level 19L, Anion Gap 13, Blood Urea Nitrogen 24H, Creatinine 0.84, Estimat Glomerular Filtration Rate 94, BUN/Creatinine Ratio 29, Glucose Level 130H, Calcium Level 8.7, Corrected Calcium 9.3, Total Bilirubin 0.5, Aspartate Amino Transf (AST/SGOT) 13, Alanine Aminotransferase (ALT/SGPT) 12, Alkaline Phosphatase 89, Total Protein 6.2L, Albumin 3.2 Assessment/Plan Assessment/Plan Assess & Plan/Chief Complaint JAMAICA MATHEWS MD Dec 16, 2021 10:01
[2021-12-16] MEDS: polyethylene glycoL POWDER 17 GM (MIRALAX) PACK PO SCH (10:23)
[2021-12-16] MEDS: DOCUSATE SODIUM 100 MG (COLACE) CAP PO SCH (10:23)
--- NOTE | 2021-12-16 10:46 | Consultation-Cardiology ---
HPI-Cardiology Cardiology Consultation Date of Consultation 12/16/21 Date of Admission Time Seen by Provider: 10:35 Indication: Peripheral arterial disease, coronary artery disease HPI 71 years old gentleman with history of coronary artery disease, had peripheral arterial disease, history of CVA, underwent complex procedure at [facility] with Dr. Christie subsequently had complication with rupture of the peroneal artery, patient had compartment syndrome, had surgery and recovered well, had an open wound on his leg with wound VAC. I was called for evaluation after he was transferred to the acute rehab unit. On my evaluation he was sitting comfortably in bed, concerned about the wound VAC machine if it was working properly. He denied any chest pain or shortness of breath. Having edema in his leg. I answered all his questions and concerns and explained to him that the management of the wound and the wound VAC is out of my area of expertise and comfort. There is no active pain at this time. Home Medications & Allergies Allergies: Coded Allergies: No Known Drug Allergies (Unverified , 10/15/11) Home Medication List Reviewed: Yes MRK-Iuucro-Zburaw Hx Patient Social History Marital Status: Employed/Student: retired Smoking Status: Former Smoker Have you traveled recently?: No Alcohol Use?: Yes Substance type: Caffeine Immunizations Up To Date Date of Pneumonia Vaccine: Sep 27, 2011 Date of Influenza Vaccine: Jul 18, 2013 Past Medical History Discussed below Family Medical History Family Medical Hx Noncontributory to his current condition Review of Systems-General Review of Systems Constitutional: see HPI, malaise, weakness EENTM: no symptoms reported Respiratory: see HPI; No cough, No dyspnea on exertion, No hemoptysis, No orthopnea, No phlegm, No short of breath, No stridor, No wheezing, No other Cardiovascular: see HPI; No chest pain; edema (On the left leg); No Hx of Intervention, No palpitations, No syncope, No vascular heart diseas, No other Gastrointestinal: no symptoms reported, see HPI Genitourinary: no symptoms reported, see HPI Musculoskeletal: back pain Skin: see HPI Psychiatric/Neurological: See HPI, Depressed All Other Systems Reviewed Negative Unless Noted: Yes Reviewed Test Results Reviewed Test Results Lab Laboratory Tests Test 12/16/21 05:00 Range/Units White Blood Count 9.2 4.3-11.0 10^3/uL Red Blood Count 3.32 L 4.30-5.52 10^6/uL Hemoglobin 9.8 L 13.3-17.7 g/dL Hematocrit 29 L 40-54 % Mean Corpuscular Volume 88 80-99 fL Mean Corpuscular Hemoglobin 30 25-34 pg Mean Corpuscular Hemoglobin Concent 33 32-36 g/dL Red Cell Distribution Width 16.2 H 10.0-14.5 % Platelet Count 196 130-400 10^3/uL Mean Platelet Volume 10.1 9.0-12.2 fL Immature Granulocyte % (Auto) 1 % Neutrophils (%) (Auto) 68 42-75 % Lymphocytes (%) (Auto) 15 12-44 % Monocytes (%) (Auto) 13 H 0-12 % Eosinophils (%) (Auto) 2 0-10 % Basophils (%) (Auto) 0 0-10 % Neutrophils # (Auto) 6.3 1.8-7.8 10^3/uL Lymphocytes # (Auto) 1.4 1.0-4.0 10^3/uL Monocytes # (Auto) 1.2 H 0.0-1.0 10^3/uL Eosinophils # (Auto) 0.2 0.0-0.3 10^3/uL Basophils # (Auto) 0.0 0.0-0.1 10^3/uL Immature Granulocyte # (Auto) 0.1 0.0-0.1 10^3/uL Sodium Level 133 L 135-145 MMOL/L Potassium Level 4.1 3.6-5.0 MMOL/L Chloride Level 101 98-107 MMOL/L Carbon Dioxide Level 19 L 21-32 MMOL/L Anion Gap 13 5-14 MMOL/L Blood Urea Nitrogen 24 H 7-18 MG/DL Creatinine 0.84 0.60-1.30 MG/DL Estimat Glomerular Filtration Rate 94 BUN/Creatinine Ratio 29 Glucose Level 130 H 70-105 MG/DL Calcium Level 8.7 8.5-10.1 MG/DL Corrected Calcium 9.3 8.5-10.1 MG/DL Total Bilirubin 0.5 0.1-1.0 MG/DL Aspartate Amino Transf (AST/SGOT) 13 5-34 U/L Alanine Aminotransferase (ALT/SGPT) 12 0-55 U/L Alkaline Phosphatase 89 40-136 U/L Total Protein 6.2 L 6.4-8.2 GM/DL Albumin 3.2 3.2-4.5 GM/DL Physical Exam Physical Exam Vital Signs Vital Signs - First Documented 12/15/21 13:30 Temp 37.0 Pulse 75 Resp 18 B/P (MAP) 167/71 (103) Pulse Ox 97 O2 Delivery Room Air Capillary Refill : Height, Weight, BMI Height: 5'9.00" Weight: 200lbs. oz. 90.084037kw; 28.96 BMI Method:Stated General Appearance: No Apparent Distress, WD/WN, Anxious, Chronically ill, Obese Eyes: Bilateral Eye Normal Inspection, Bilateral Eye PERRL HEENT: PERRL/EOMI, Normal ENT Inspection, Pharynx Normal Neck: Full Range of Motion, Normal Inspection, Non Tender, Supple, Carotid Bruit Respiratory: Chest Non Tender, Lungs Clear, Normal Breath Sounds, No Accessory Muscle Use, No Respiratory Distress Cardiovascular: Regular Rate, Rhythm, No Gallop, No JVD, Normal Peripheral Pulses, Systolic Murmur Gastrointestinal: Normal Bowel Sounds, No Organomegaly, No Pulsatile Mass, Non Tender, Soft Back: Normal Inspection, No CVA Tenderness, No Vertebral Tenderness Extremity: Normal Capillary Refill, Normal Range of Motion, Non Tender, Pedal Edema (Edema of the left leg and diminished pulse), Other (Has open wound with wound VAC on the left leg) Neurologic/Psychiatric: Alert, Oriented x3, No Motor/Sensory Deficits, fur drummer II- XII Norm as Tested, Abnormal Gait, Depressed Affect, Motor Weakness (Right- sided) Skin: Normal Color, Warm/Dry, Other (Left lower extremity bandage intact) Lymphatic: No Adenopathy A/P-Cardiology Admission Diagnosis Peripheral arterial disease Coronary artery disease Hypertension Hyperlipidemia Assessment/Plan Status post compartment syndrome after rupture of the left peroneal artery, underwent emergency surgical repair. Has an open wound on the left leg with wound VAC. Peripheral arterial disease, status post left peroneal atherectomy complicated by fracture of the CSI wire and vessel rupture on 12/09/2021. Covered stent was deployed to the popliteal and peroneal artery to provide single-vessel runoff. Had left leg fasciotomy with wound VAC placement by Dr. Isaac on 12/09/2021. Patient has a Nitropatch on the left leg which will be continued at this point. History of stenting of the right lower extremity by Dr. Christie earlier in November 2021 Continue with local care and physical therapy. Coronary artery disease, history of CABG x5 done over [address] Isaac Cardiac catheterization was carried out by Dr. Christie on 12/09/2021 reported as left main has distal 90% stenosis leading into a large circumflex system that fed several small obtuse marginal branches underwent balloon angioplasty with reduction of the lesion to 30% residual stenosis. The LAD has 80 to 90% proximal stenosis and was occluded beyond the small proximal diagonal vessel. The TORRES to the LAD is patent with diffuse 50 to 60% stenosis beyond the graft. The right coronary artery is occluded and the vein graft to the right coronary artery has diffuse disease. There are 2 vein grafts were occluded. Right leg angiography showed 30 to 40% proximal common iliac stenosis, the right SFA has 30% proximal stenosis, 25 to 30% distal stenosis and was not well visualized beyond the knee Left leg angiography mild iliac disease, the left proximal SFA has 60% stenosis reduced to 30% followed balloon angioplasty and severe stenosis distally, attempt for intervention resulted in rupture of the peroneal artery as described above. Hypertension, restart home medication monitor blood pressure Hyperlipidemia, monitor lipids History of CVA in the year 1999 and 2004 with residual weakness on the right side and the left side. History of carotid stenosis following with Dr. Isaac Diabetes mellitus, followed and managed by primary care physician JORJE MARIE MD Dec 16, 2021 10:46
--- NOTE | 2021-12-16 10:46 | Physical Therapy Progress Note ---
Therapy Progress Note Pt refusing all therapy this morning. manager energy notified and went in to speak to patient. Pt still refusing. PT to attempt again later this afternoon. LINDA ESCALONA PT Dec 16, 2021 10:46
[2021-12-16 11:52] VITALS: BP 106/62
--- NOTE | 2021-12-16 11:54 | Physical Therapy Daily Note ---
PT Daily Note-Current Subjective Patient in recliner pre tx, agrees to PT, has 2/10 pain in left leg. Will be co-treating with OT due to poor patient mobility, strength, endurance, severe pain with activity, right hemiparesis, coordinate UE and LE during activity, safety and reduce risk of falls. Appearance Patient in recliner post tx with nurse call, phone, tray, family in room. Mental Status Patient Orientation: Person, Place, Situation wound vac Transfers SCALE: Activities may be completed with or without assistive devices. 0-Abhopekxaj-gmtdfuu completes the activity by him/herself with no assistance from a helper. 5-Set-up or Clean-up Assistance-helper sets up or cleans up; patient completes activity. [place] assists only prior to or following the activity. 4-Supervision or Touching Assistance-helper provides verbal cues and/or touching/steadying and/or contact guard assistance as patient completes activity. Assistance may be provided throughout the activity or intermittently. 3-Partial/Moderate Assistance-helper does LESS THAN HALF the effort. [place] lifts, holds or supports trunk or limbs, but provides less than half the effort. 2-Substantial/Maximal Assistance-helper does MORE THAN HALF the effort. [place] lifts or holds trunk or limbs and provides more than half the effort. 1-Wqaqeptzl-rqkuew does ALL the effort. Patient does none of the effort to complete the activity. Or, the assistance of 2 or more helpers is required for the patient to complete the activity. If activity was not attempted, code reason: 7-Patient Refused. 9-Not Applicable-not attempted and the patient did not perform the activity before the current illness, exacerbation or injury. 10-Not Attempted due to Environmental Limitations-(lack of equipment, weather restraints, etc.). 88-Not Attempted due to Medical Conditions or Safety Concerns. Sit to Stand (QC): 3 Chair/Lcz-yq-Vugra Xfer(QC): 3 min assist for sit to stand and transfers, cues for positioning and safety Weight Bearing Full Weight Bearing Full Weight Bearing Gait Training attempted ambulation but patient states he doesn't think he will be able to do it Exercises Standing: Sit to Stand (x5) worked on trunk strengthening anterior posterior 2 sets of 10, also worked on standing balance and strengthening with cone placement and reaching Treatments PT worked on transfers, LE strengthening, trunk strengthening, OT worked on reaching, cone activity, UE positioning and safety during activity Assessment Current Status: Fair Progress improved standing quality, less "melting" during standing PT Short Term Goals Short Term Goals Time Frame: Dec 22, 2021 Roll Left & Right: 6 Sit to lyin Lying to sitting on side of be: 6 Sit to stand: 4 (CGA) Chair/bwq-zy-qadau transfer: 4 (CGA) Toilet transfer: 4 (CGA) Car transfer: 4 (CGA) Walk 10 feet: 4 (CGA) Walk 50 feet with two turns: 4 (CGA) Walk 150 feet: 4 (CGA) Walking 10ft on uneven surface: 4 (CGA) 1 step (curb): 4 (CGA) Does pt use a wc or scooter: No Type: N/A PT Quill Reamer Goals Prison Goals PT Quill Reamer Goals Time Frame: Jan 05, 2022 Roll Left & Right (QC): 6 Sit to Lying (QC): 6 Lying-Sitting on Side/Bed(QC): 6 Sit to Stand (QC): 6 Chair/Haw-wt-Yavra Xfer(QC): 6 Toilet Transfer (QC): 6 Car Transfer (QC): 6 Does the Patient Walk: Yes Walk 10 feet (QC): 6 Walk 50ft with 2 Turns (QC): 6 Walk 150 ft (QC): 6 Walking 10ft on Uneven Surface: 6 1 Step (curb) (QC): 6 4 Steps (QC): 6 12 Steps (QC): 6 Picking up an Object (QC): 6 Does the Pt use WC or Scooter?: Yes Wheel 50 feet with 2 turns (QC: 6 Type: Manual Wheel 150 feet: 6 Type: Manual PT Plan Problem List Problem List: Activity Tolerance, Functional Strength, Safety, Balance, Gait, Transfer, Bed Mobility, ROM Treatment/Plan Treatment Plan: Continue Plan of Care Treatment Plan: Bed Mobility, Education, Functional Activity Robert, Functional Strength, Group Therapy, Gait, Safety, Therapeutic Exercise, Transfers Treatment Duration: Jan 05, 2022 Frequency: At least 5 of 7 days/Wk (IRF) Estimated Hrs Per Day: 1.5 hours per day Patient and/or Family Agrees t: Yes Safety Risks/Education Patient Education: Transfer Techniques, Correct Positioning, Safety Issues Teaching Recipient: Patient Teaching Methods: Demonstration, Discussion Response to Teaching: Reinforcement Needed Time/GCodes Time In: 1100 Time Out: 1200 Total Billed Treatment Time: 60 Total Billed Treatment 1 visit FA 15' EX 45' co-treated from [id number] for 50 min LINDA ESCALONA PT Dec 16, 2021 11:54
[2021-12-16] MEDS ORDERED: NITROGLYCERIN 2% OINT 1 GM UNIT DOSE PACKET TOP SCH (12:00)
--- NOTE | 2021-12-16 12:14 | Occupational Ther Daily Note ---
OT Current Status-Daily Note Subjective Patient in recliner pre tx, agrees to therapy, has 2/10 pain in left leg. Will be co-treating with PT due to poor patient mobility, strength, endurance, severe pain with activity, right hemiparesis, coordinate UE and LE during activity, safety and reduce risk of falls. Appearance Pt returned to sitting in recliner, all needs within reach, family in the room. Mental Status/Objective Patient Orientation: Person, Situation ADL-Treatment Therapy Code Descriptions/Definitions Functional Major Measure: 0=Not Assessed/NA 4=Minimal Assistance 1=Total Assistance 5=Supervision or Setup 2=Maximal Assistance 6=Modified Major 3=Moderate Assistance 7=Complete IndependenceSCALE: Activities may be completed with or without assistive devices. 6-Rqmuxgflwb-ocvmkhu completes the activity by him/herself with no assistance from a helper. 5-Set-up or Clean-up Assistance-helper sets up or cleans up; patient completes activity. [place] assists only prior to or following the activity. 4-Supervision or Touching Assistance-helper provides verbal cues and/or touching/steadying and/or contact guard assistance as patient completes activity. Assistance may be provided throughout the activity or intermittently. 3-Partial/Moderate Assistance-helper does LESS THAN HALF the effort. [place] lifts, holds or supports trunk or limbs, but provides less than half the effort. 2-Substantial/Maximal Assistance-helper does MORE THAN HALF the effort. [place] lifts or holds trunk or limbs and provides more than half the effort. 3-Jjbunsdwa-qhtxpx does ALL the effort. Patient does none of the effort to complete the activity. Or, the assistance of 2 or more helpers is required for the patient to complete the activity. If activity was not attempted, code reason: 7-Patient Refused. 9-Not Applicable-not attempted and the patient did not perform the activity before the current illness, exacerbation or injury. 10-Not Attempted due to Environmental Limitations-(lack of equipment, weather restraints, etc.). 88-Not Attempted due to Medical Conditions or Safety Concerns. On/Off Footwear: 3 Other Treatment Multiple sit<>stands throughout session: min-mod a, cues and extra time for full upright posture. Once upright, pt refuses ambulating. While in gym, pt stood in parallel bars with min a. Mirror placed in front as visual feedback on posture. While standing, pt erased letters from A-P in alphabetical order, cues on upright posture including head/neck. Pt also completed reaching activity with cones to encourage weight bearing and preferred posture. Consistent verbal and tactile cues throughout as pt has tendency to sink into flexion, especially with fatigue. Pt then completed seated core exercises, 10x2 with rest in between each set. Education OT Patient Education: Correct positioning, Energy conservation, Exercise program, Modified ADL techniques, Progress toward Goal/Update tx plan, Purpose of tx/functional activities, Reviewed precautions, Rehab process, Safety issues, Transfer techniques, W/C management Teaching Recipient: Patient Teaching Methods: Demonstration, Discussion Response to Teaching: Verbalize Understanding, Return Demonstration, Reinforcement Needed OT Short Term Goals Short Term Goals Time Frame: Dec 23, 2021 Shower/bathe self: 4 Lower body dressin Putting on/taking off footwear: 4 OT Long-Term Goals Long-Term Goals Time Frame: Jan 06, 2022 Eating (QC): 6 Oral Hygiene (QC): 6 Toileting Hygiene (QC): 6 Shower/Bathe Self (QC): 6 Upper Body Dressing (QC): 6 Lower Body Dressing (QC): 6 On/Off Footwear (QC): 6 Additional Goals: 1-Demonstrate ADL Tasks, 2-Verbalize Understanding, 3- ImproveStrength/Robert 1=Demonstrate adherence to instructed precautions during ADL tasks. 2=Patient will verbalize/demonstrate understanding of assistive devices/modifications for ADL. 3=Patient will improve strength/tolerance for activity to enable patient to perform ADL's. OT Education/Plan Problem List/Assessment Assessment: Decreased Activ Tolerance, Decreased Safety Aware, Decreased UE Strength, Impaired Coordination, Impaired Funct Balance, Impaired I ADL's, Impaired Self-Care Skills, Restricted Funct UE ROM Discharge Recommendations Plan/Recommendations: Continue POC Treatment Plan/Plan of Care Treatment,Training & Education: Yes Patient would benefit from OT for education, treatment and training to promote independence in ADL's, mobility, safety and/or upper extremity function for ADL's. Plan of Care: ADL Retraining, Functional Mobility, Group Exercise/Act as Ind, U E Funct Exercise/Act Treatment Duration: Jan 06, 2022 Frequency: At least 5 of 7 days/Wk (IRF) Estimated Hrs Per Day: 1.5 hours per day Agreement: Yes Rehab Potential: Fair Time/GCodes Start Time: 11:10 Stop Time: 12:10 Total Time Billed (hr/min): 60 Billed Treatment Time 1 visit FA x4 Irena Nuno OT Dec 16, 2021 12:14
--- NOTE | 2021-12-16 13:17 | Discharge Summary ---
Diagnosis/Chief Complaint Date of Admission Dec 15, 2021 at 12:30 Date of Discharge Discharge Date: Dec 16, 2021 Discharge Diagnosis Assessment: Discharge from inpatient rehab unit requested by patient and family Left lower extremity fasciotomy due to complications from peripheral vascular procedure by Dr. Isaac 12/09/2021 with wound VAC placement Acute CVA with no residual during acute episode of complication Chronic CVA with right-sided weakness Hypertension CAD Previous CABG Discharge Summary Discharge Physical Examination Allergies: Coded Allergies: No Known Drug Allergies (Unverified , 10/15/11) Vitals & I&Os Vital Signs Date Time Temp Pulse Resp B/P (MAP) Pulse Ox O2 Delivery O2 Flow Rate FiO2 12/16/21 15:00 36.7 77 20 106/62 98 Room Air Hospital Course Was the Problem List Reviewed?: Yes Short hospital course after admitted from [facility] acute on chronic CVA and left lower extremity fasciotomy with wound VAC placement. Patient had difficulty as inpatient rehab unit due to dissatisfaction with wound VAC specialist physician all other specialties of physicians not available at the bedside 09/04. He did not have any acute care needs to require bedside physician assessment last night because blood pressure remained normal when he had the nurse check it every hour and refused to sleep in the bed but instead sat in a recliner all night. Primary care provider Dr. Lawton was notified spoke to him in depth and the decision was made due to his dissatisfaction with therapeutic specialist and lack of 09/04 physician presence in the unit he was moved to fourth floor and will move to [facility] inpatient rehab on Sunday. Labs (last 24 hrs) Laboratory Tests 12/16/21 05:00: White Blood Count 9.2, Red Blood Count 3.32L, Hemoglobin 9.8L, Hematocrit 29L, Mean Corpuscular Volume 88, Mean Corpuscular Hemoglobin 30, Mean Corpuscular Hemoglobin Concent 33, Red Cell Distribution Width 16.2H, Platelet Count 196, Mean Platelet Volume 10.1, Immature Granulocyte % (Auto) 1, Neutrophils (%) (Auto) 68, Lymphocytes (%) (Auto) 15, Monocytes (%) (Auto) 13H, Eosinophils (%) (Auto) 2, Basophils (%) (Auto) 0, Neutrophils # (Auto) 6.3, Lymphocytes # (Auto) 1.4, Monocytes # (Auto) 1.2H, Eosinophils # (Auto) 0.2, Basophils # (Auto) 0.0, Immature Granulocyte # (Auto) 0.1, Sodium Level 133L, Potassium Level 4.1, Chloride Level 101, Carbon Dioxide Level 19L, Anion Gap 13, Blood Urea Nitrogen 24H, Creatinine 0.84, Estimat Glomerular Filtration Rate 94, BUN/Creatinine Ratio 29, Glucose Level 130H, Calcium Level 8.7, Corrected Calcium 9.3, Total Bilirubin 0.5, Aspartate Amino Transf (AST/SGOT) 13, Alanine Aminotransferase (ALT/SGPT) 12, Alkaline Phosphatase 89, Total Protein 6.2L, Albumin 3.2 Pending Labs Laboratory Tests 12/16/21 05:00: White Blood Count 9.2, Red Blood Count 3.32, Hemoglobin 9.8, Hematocrit 29, Mean Corpuscular Volume 88, Mean Corpuscular Hemoglobin 30, Mean Corpuscular Hemoglobin Concent 33, Red Cell Distribution Width 16.2, Platelet Count 196, Mean Platelet Volume 10.1, Immature Granulocyte % (Auto) 1, Neutrophils (%) (Aut o) 68, Lymphocytes (%) (Auto) 15, Monocytes (%) (Auto) 13, Eosinophils (%) (Auto) 2, Basophils (%) (Auto) 0, Neutrophils # (Auto) 6.3, Lymphocytes # (Auto) 1.4, Monocytes # (Auto) 1.2, Eosinophils # (Auto) 0.2, Basophils # (Auto) 0.0, Immature Granulocyte # (Auto) 0.1, Sodium Level 133, Potassium Level 4.1, Chloride Level 101, Carbon Dioxide Level 19, Anion Gap 13, Blood Urea Nitrogen 24, Creatinine 0.84, Estimat Glomerular Filtration Rate 94, BUN/Creatinine Ratio 29, Glucose Level 130, Calcium Level 8.7, Corrected Calcium 9.3, Total Bilirubin 0.5, Aspartate Amino Transf (AST/SGOT) 13, Alanine Aminotransferase (ALT/SGPT) 12, Alkaline Phosphatase 89, Total Protein 6.2, Albumin 3.2 Discharge Home Medications: Active Scripts Active Reported Mupirocin (Mupirocin Calcium) 15 Gm Cream..g. 1 Applic TP TID PRN APPLICATION SITE NOT DISCLOSED ON DISCHARGE ORDERS Clopidogrel (Clopidogrel Bisulfate) 75 Mg Tablet 75 Mg PO DAILY Multivitamins with Minerals (Multivitamin with Minerals) 1 Each Tablet 1 Each PO DAILY Lutein 20 Mg Tablet 20 Mg PO DAILY Aspirin EC (Aspirin) 81 Mg Tablet.dr 81 Mg PO DAILY Naproxen 500 Mg Tablet 500 Mg PO BID PRN Metformin HCl ER (Metformin HCl) 750 Mg Tab.er.24h 750 Mg PO HS Glimepiride 4 Mg Tablet 4 Mg PO DAILY Lisinopril 20 Mg Tablet 20 Mg PO DAILY Carvedilol 25 Mg Tablet 25 Mg PO BID Eplerenone 50 Mg Tablet 50 Mg PO DAILY Furosemide 40 Mg Tablet 40 Mg PO DAILY Allopurinol 300 Mg Tablet 300 Mg PO HS Loratadine 10 Mg Tablet 10 Mg PO DAILY PRN Atorvastatin Calcium 80 Mg Tablet 80 Mg PO DAILY Instructions to patient/family Please see electronic discharge instructions given to patient. Diagnosis/Problems Diagnosis/Problems (1) Myopathy SIDNEY ORR DO Dec 16, 2021 13:17
--- NOTE | 2021-12-16 13:39 | Occupational Ther Daily Note ---
OT Current Status-Daily Note Subjective Pt alert, sitting in recliner. Pt agrees to therapy. No c/o pain. Mental Status/Objective Patient Orientation: Person, Place, Time, Situation ADL-Treatment Therapy Code Descriptions/Definitions Functional [place] Measure: 0=Not Assessed/NA 4=Minimal Assistance 1=Total Assistance 5=Supervision or Setup 2=Maximal Assistance 6=Modified [place] 3=Moderate Assistance 7=Complete IndependenceSCALE: Activities may be completed with or without assistive devices. 0-Yliyhiherq-wzajovn completes the activity by him/herself with no assistance f rom a helper. 5-Set-up or Clean-up Assistance-helper sets up or cleans up; patient completes activity. [place] assists only prior to or following the activity. 4-Supervision or Touching Assistance-helper provides verbal cues and/or touching/steadying and/or contact guard assistance as patient completes activity. Assistance may be provided throughout the activity or intermittently. 3-Partial/Moderate Assistance-helper does LESS THAN HALF the effort. [place] lifts, holds or supports trunk or limbs, but provides less than half the effort. 2-Substantial/Maximal Assistance-helper does MORE THAN HALF the effort. [place] lifts or holds trunk or limbs and provides more than half the effort. 0-Upcthjbms-ppqwoz does ALL the effort. Patient does none of the effort to complete the activity. Or, the assistance of 2 or more helpers is required for the patient to complete the activity. If activity was not attempted, code reason: 7-Patient Refused. 9-Not Applicable-not attempted and the patient did not perform the activity before the current illness, exacerbation or injury. 10-Not Attempted due to Environmental Limitations-(lack of equipment, weather restraints, etc.). 88-Not Attempted due to Medical Conditions or Safety Concerns. Oral Hygiene (QC): 7 (Pt refused oral care. ) Other Treatment Skilled instruction for correct technique when completing B UE exercises. Using 2# wts pt able to complete 2 sets 20 reps of modified shldr abd/add, shldr press, front punch and bicep curls. Fatigue noted at end of 2nd set. Pt asking about Botox injection on L bicep. NOVAK explain about how Botox works. Pt then stated that he had broken his L elbow and was plated/screwed then it was taken out. NOVAK discussed with pt that there was probable joint involvement with decreased ROM in that area and an orthopedic surgeon would be better to answer questions. Pt educated on stretching to B shldrs and pt tolerated well. After therapy, pt sitting in recliner with call light/phone in reach. All needs met in room. OT Short Term Goals Short Term Goals Time Frame: Dec 23, 2021 Shower/bathe self: 4 Lower body dressin Putting on/taking off footwear: 4 OT [facility] Goals Vice President For Philanthropy Goals Time Frame: Jan 06, 2022 Eating (QC): 6 Oral Hygiene (QC): 6 Toileting Hygiene (QC): 6 Shower/Bathe Self (QC): 6 Upper Body Dressing (QC): 6 Lower Body Dressing (QC): 6 On/Off Footwear (QC): 6 Additional Goals: 1-Demonstrate ADL Tasks, 2-Verbalize Understanding, 3- ImproveStrength/Robert 1=Demonstrate adherence to instructed precautions during ADL tasks. 2=Patient will verbalize/demonstrate understanding of assistive devices/modifications for ADL. 3=Patient will improve strength/tolerance for activity to enable patient to perform ADL's. OT Education/Plan Problem List/Assessment Assessment: Decreased Activ Tolerance, Decreased UE Strength, Impaired Self- Care Skills, Restricted Funct UE ROM Discharge Recommendations Plan/Recommendations: Continue POC Treatment Plan/Plan of Care Patient would benefit from OT for education, treatment and training to promote independence in ADL's, mobility, safety and/or upper extremity function for ADL's. Plan of Care: ADL Retraining, Functional Mobility, Group Exercise/Act as Ind, UE Funct Exercise/Act Treatment Duration: Jan 06, 2022 Frequency: At least 5 of 7 days/Wk (IRF) Estimated Hrs Per Day: 1.5 hours per day Agreement: Yes Rehab Potential: Fair Time/GCodes Start Time: 12:50 Stop Time: 13:20 Total Time Billed (hr/min): 30 Billed Treatment Time 1 visit-EX 2 (30 min) BROOKE HEREDIA Dec 16, 2021 13:39
--- NOTE | 2021-12-16 13:52 | Therapy Team Discharge Summary ---
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 Upon evaluation patient performed rolling with independence, supine <-> sit setup, sit <-> stand and transfers with min assist, car transfer max assist, can ambulate 80' with a rolling walker with min assist (but ambulates 10' over an uneven surface with CGA and 50' with at least 2 turns of 90 degrees with CGA), can propel a manual WC 50' with min assist, can go up and down 1 step using a rolling walker with min assist, and could belt picker an object from the floor using a pipeline inspector with CGA. Patient has only been here one day, and is being discharged due to family request. Patient will be discharged from PT at this time. Roll Left to Right (QC): 6 Sit to Lying (QC): 5 Lying to Sitting/Side of Bed(Q: 5 Sit to Stand (QC): 3 Chair/Lph-po-Zvtow Xfer(QC): 3 Toilet Transfer (QC): 4 Car Transfer (QC): 2 Does the Patient Walk: Yes Mode of Locomotion: Both Anticipated Mode of Locomotion: Walk Walk 10 feet (QC): 4 Walk 50 ft with 2 Turns(QC): 3 Walk 150 ft (QC): 88 Walking 10ft on uneven surface: 4 Distance: 20', 10', 80' Gait Assistive Device: FWW Does the Pt Use a Wheelchair: Yes Wheelchair Distance: 50 Wheel 50 ft with 2 turns (QC): 3 Wheel 150 ft (QC): 88 Type of Wheelchair: Manual #of Steps: 1 1 Step (curb) (QC): 3 4 Steps (QC): 88 12 Steps (QC): 88 Walking Assistive Device: Walker Balance Sitting Static: Normal Balance Sitting Dynamic: Normal Balance-Standing Static: Poor Picking up an Object (QC): 4 (using a pipeline inspector) Occupational Therapy Decreased Activ Tolerance, Decreased UE Strength, Impaired Self-Care Skills, Restricted Funct UE ROM Eating (QC): 6 (Pt able to open containers/packages by self then uses regular utensils to eat.) Oral Hygiene (QC): 7 (Pt refused oral care. ) Shower/Bathe Self (QC): 3 (Min A with washing buttocks. Pt able to wash all other parts seated.) Upper Body Dressing (QC): 5 (set up) Lower Body Dressing (QC): 3 (Min A. pt able to doff pants, required assistance threading LLE into pants. Pt able to complete pant hike and thread RLE) On/Off Footwear (QC): 3 Toileting Hygiene (QC): 3 (Pt stood at toilet to urinate, able to manipulate clothes. Min A-CGA for balance.) PT Fpc Goals Fpc Goals PT Fpc Goals Time Frame: Jan 05, 2022 Roll Left to Right (QC): 6 Sit to Lying (QC): 6 Lying-Sitting on Side/Bed(QC): 6 Sit to Stand (QC): 6 Chair/Fsm-bk-Obfzv Xfer(QC): 6 Car Transfer (QC): 6 Does the Patient Walk: Yes Walk 10 feet (QC): 6 Walk 10ft-Uneven Surface(QC): 6 Walk 50ft with 2 Turns (QC): 6 Walk 150 ft (QC): 6 Does the Pt use WC or Scooter?: Yes Wheel 50 feet with 2 turns (QC: 6 1 Step (curb) (QC): 6 4 Steps (QC): 6 12 Steps (QC): 6 Picking up an Object (QC): 6 OT Fpc Goals Fpc Goals Time Frame: Jan 06, 2022 Eating (QC): 6 Oral Hygiene (QC): 6 Shower/Bathe Self (QC): 6 Upper Body Dressing (QC): 6 Lower Body Dressing (QC): 6 On/Off Footwear (QC): 6 Toileting Hygiene (QC): 6 Toilet/Commode Transfer (QC): 6 Additional Goals: 1-Demonstrate ADL Tasks, 2-Verbalize Understanding, 3-ImproveStrength/Robert 1=Demonstrate adherence to instructed precautions during ADL tasks. 2=Patient will verbalize/demonstrate understanding of assistive devices/modifications for ADL. 3=Patient will improve strength/tolerance for activity to enable patient to perform ADL's. LINDA ESCALONA PT Dec 16, 2021 13:52
--- NOTE | 2021-12-16 14:29 | Therapy Team Discharge Summary ---
Therapy Discharge Summary Discharge Recommendations Date of Discharge Physical Therapy Roll Left to Right (QC): 6 Sit to Lying (QC): 5 Lying to Sitting/Side of Bed(Q: 5 Sit to Stand (QC): 3 Chair/Gdv-gv-Djtzf Xfer(QC): 3 Toilet Transfer (QC): 4 Car Transfer (QC): 2 Does the Patient Walk: Yes Mode of Locomotion: Both Anticipated Mode of Locomotion: Walk Walk 10 feet (QC): 4 Walk 50 ft with 2 Turns(QC): 3 Walk 150 ft (QC): 88 Walking 10ft on uneven surface: 4 Distance: 20', 10', 80' Gait Assistive Device: FWW Does the Pt Use a Wheelchair: Yes Wheelchair Distance: 50 Wheel 50 ft with 2 turns (QC): 3 Wheel 150 ft (QC): 88 Type of Wheelchair: Manual #of Steps: 1 1 Step (curb) (QC): 3 4 Steps (QC): 88 12 Steps (QC): 88 Walking Assistive Device: Walker Balance Sitting Static: Normal Balance Sitting Dynamic: Normal Balance-Standing Static: Poor Picking up an Object (QC): 4 (using a fixer supervisor) Occupational Therapy 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 Upon evaluation patient was min-mod a for toileting, footwear, lower body dressing, and bathing, set up for upper body dressing and oral care and indep with eating. Limited treatment performed as pt was only here one day until family requested to be transferred. No progress made from eval date, scores remain the same. Pt will discharge from OT at this time. Decreased Activ Tolerance, Decreased UE Strength, Impaired Self-Care Skills, Restricted Funct UE ROM Eating (QC): 6 (Pt able to open containers/packages by self then uses regular utensils to eat.) Oral Hygiene (QC): 7 (Pt refused oral care. ) Shower/Bathe Self (QC): 3 (Min A with washing buttocks. Pt able to wash all other parts seated.) Upper Body Dressing (QC): 5 (set up) Lower Body Dressing (QC): 3 (Min A. pt able to doff pants, required assistance threading LLE into pants. Pt able to complete pant hike and thread RLE) On/Off Footwear (QC): 3 Toileting Hygiene (QC): 3 (Pt stood at toilet to urinate, able to manipulate clothes. Min A-CGA for balance.) PT Feature Writer Goals Group Home Goals PT Group Home Goals Time Frame: Jan 05, 2022 Roll Left to Right (QC): 6 Sit to Lying (QC): 6 Lying-Sitting on Side/Bed(QC): 6 Sit to Stand (QC): 6 Chair/Wjj-ck-Kewoq Xfer(QC): 6 Car Transfer (QC): 6 Does the Patient Walk: Yes Walk 10 feet (QC): 6 Walk 10ft-Uneven Surface(QC): 6 Walk 50ft with 2 Turns (QC): 6 Walk 150 ft (QC): 6 Does the Pt use WC or Scooter?: Yes Wheel 50 feet with 2 turns (QC: 6 1 Step (curb) (QC): 6 4 Steps (QC): 6 12 Steps (QC): 6 Picking up an Object (QC): 6 OT Feature Writer Goals Feature Writer Goals Time Frame: Jan 06, 2022 Eating (QC): 6 Oral Hygiene (QC): 6 Shower/Bathe Self (QC): 6 Upper Body Dressing (QC): 6 Lower Body Dressing (QC): 6 On/Off Footwear (QC): 6 Toileting Hygiene (QC): 6 Toilet/Commode Transfer (QC): 6 Additional Goals: 1-Demonstrate ADL Tasks, 2-Verbalize Understanding, 3- ImproveStrength/Robert 1=Demonstrate adherence to instructed precautions during ADL tasks. 2=Patient will verbalize/demonstrate understanding of assistive devices/modific ations for ADL. 3=Patient will improve strength/tolerance for activity to enable patient to perform ADL's. Irena Nuno OT Dec 16, 2021 14:29
[2021-12-16 15:00] VITALS: BP 106/62
== END 2021-12-16 15:00 | disposition short-term general hospital (02) | DRG 92 ==
PROVIDERS: ADMIT Internal Medicine; ATTEND Internal Medicine
DX: G72.89 Other specified myopathies (principal); I69.351 Hemiplegia and hemiparesis following cerebral infarction affecting right dominant side; D62 Acute posthemorrhagic anemia; I25.810 Atherosclerosis of coronary artery bypass graft(s) without angina pectoris; Z48.817 Encounter for surgical aftercare following surgery on the skin and subcutaneous tissue; E11.51 Type 2 diabetes mellitus with diabetic peripheral angiopathy without gangrene; I70.203 Unspecified atherosclerosis of native arteries of extremities, bilateral legs; I25.10 Atherosclerotic heart disease of native coronary artery without angina pectoris; I10 Essential (primary) hypertension; E78.5 Hyperlipidemia, unspecified; Z79.84 Long term (current) use of oral hypoglycemic drugs; Z87.891 Personal history of nicotine dependence; Z95.1 Presence of aortocoronary bypass graft
CPT/HCPCS: 36415; 80053; 85025

== ENCOUNTER 2021-12-16 13:35 | Inpatient (IN) | payer MEDICARE ==
[~2021-12-16] VITALS: Ht 167 cm; Wt 90.0 kg
[~2021-12-16 13:35] MED LIST changes: -ACETAMINOPHEN 325 MG TABLET PO PRN; -ALPRAZolam 0.25 MG (XANAX) TAB PO PRN; -BISACODYL 10 MG SUPP (DULCOLAX) PR PRN; -CALCIUM CARBONATE 500 MG (TUMS) TAB.CHEW PO PRN; -DOCUSATE SODIUM 100 MG (COLACE) CAP PO PRN; -FLEET ENEMA ADULT 1 EA BTL PR PRN; -LACTULOSE SYRUP 10GM/15ML (ENULOSE) 30ML UDC PO PRN; -LOPERAMIDE 2 MG (IMODIUM) TABLET PO PRN; -MELATONIN 3 MG TABLET PO PRN; -ONDANSETRON 4 MG (ZOFRAN) ORAL DISSOLVE TAB PO PRN; -diphenhydrAMINE 25 MG TAB (BENADRYL) PO PRN; -guaiFENesin/CODEINE (ROBITUSSIN AC) 10ML UDC PO PRN
[2021-12-16 17:00] VITALS: BP 141/65
[2021-12-16] MEDS ORDERED: LORATADINE (CLARITIN) 10 MG TAB PO PRN (17:15)
[2021-12-16] MEDS ORDERED: ONDANSETRON 4 MG (ZOFRAN) ORAL DISSOLVE TAB PO PRN (17:15)
[2021-12-16] MEDS ORDERED: BISACODYL 10 MG SUPP (DULCOLAX) PR PRN (17:15)
[2021-12-16] MEDS ORDERED: FLEET ENEMA ADULT 1 EA BTL PR PRN (17:15)
[2021-12-16] MEDS ORDERED: LACTULOSE SYRUP 10GM/15ML (ENULOSE) 30ML UDC PO PRN (17:15)
[2021-12-16] MEDS ORDERED: diphenhydrAMINE 25 MG TAB (BENADRYL) PO PRN (17:15)
[2021-12-16] MEDS ORDERED: ACETAMINOPHEN 325 MG TABLET PO PRN (17:15)
[2021-12-16] MEDS ORDERED: LOPERAMIDE 2 MG (IMODIUM) TABLET PO PRN (17:15)
[2021-12-16] MEDS ORDERED: CALCIUM CARBONATE 500 MG (TUMS) TAB.CHEW PO PRN (17:15)
[2021-12-16] MEDS ORDERED: ALPRAZolam 0.25 MG (XANAX) TAB PO PRN (17:15)
[2021-12-16] MEDS ORDERED: MUPIROCIN 2% OINT 22 GM (BACTROBAN) TUBE TOP PRN (17:15)
[2021-12-16] MEDS ORDERED: MELATONIN 3 MG TABLET PO PRN (17:15)
[2021-12-16] MEDS ORDERED: guaiFENesin/CODEINE (ROBITUSSIN AC) 10ML UDC PO PRN (17:15)
[2021-12-16] MEDS ORDERED: NAPROXEN 250 MG (NAPROSYN) TABLET PO PRN (17:15)
[2021-12-16] MEDS ORDERED: DOCUSATE SODIUM 100 MG (COLACE) CAP PO PRN (17:15)
[2021-12-16] MEDS: metFORMIN XR 500 MG (GLUCOPHAGE XR) TAB PO SCH (18:52)
[2021-12-16] MEDS: NITROGLYCERIN 2% OINT 1 GM UNIT DOSE PACKET TOP SCH (18:53)
[2021-12-16] MEDS: DOXYCYCLINE 100 MG (VIBRAMYCIN) TABLET PO SCH (18:53)
[2021-12-16] MEDS ORDERED: NON-FORMULARY MEDICATION 1 EA EA (Metformin HCl (Metformin HCl ER) 750 MG) PO SCH (21:00)
[2021-12-16] MEDS: inSUlin ASPART (NovoLOG) 1 UNIT/0.01 ML (CHARGE PER UNIT) SC SCH (21:07)
[2021-12-16] MEDS: SENNA W/DOCUSATE (SENOKOT S) TABLET PO SCH (21:15)
[2021-12-16] MEDS: polyethylene glycoL POWDER 17 GM (MIRALAX) PACK PO SCH (21:16)
[2021-12-16] MEDS: ALLOPURINOL 300 MG (ZYLOPRIM) TAB PO SCH (21:16)
[2021-12-16 22:00] VITALS: BP 101/62
[2021-12-17] VITALS: BP 137/64
[2021-12-17] MEDS: NITROGLYCERIN 2% OINT 1 GM UNIT DOSE PACKET TOP SCH ×3 (00:36→12:12)
[2021-12-17] MEDS: GLIMEPIRIDE 4 MG (AMARYL) TAB PO SCH (06:05)
[2021-12-17] MEDS: DOXYCYCLINE 100 MG (VIBRAMYCIN) TABLET PO SCH ×2 (06:05→16:17)
[2021-12-17] MEDS: inSUlin ASPART (NovoLOG) 1 UNIT/0.01 ML (CHARGE PER UNIT) SC SCH ×4 (06:05→20:33)
[2021-12-17] MEDS: metFORMIN XR 500 MG (GLUCOPHAGE XR) TAB PO SCH (06:38)
[2021-12-17 08:00] VITALS: BP 150/58
[2021-12-17] MEDS ORDERED: EPLERENONE 50 MG PO SCH (09:00)
[2021-12-17] MEDS ORDERED: NON-FORMULARY MEDICATION 1 EA EA (Lutein 20 MG) PO SCH (09:00)
[2021-12-17] MEDS: lisINopril 20 MG (PRINIVIL) TABLET PO SCH (09:48)
[2021-12-17] MEDS: ASPIRIN E.C. 81 MG (ECOTRIN) TAB PO SCH (09:48)
[2021-12-17] MEDS: polyethylene glycoL POWDER 17 GM (MIRALAX) PACK PO SCH ×2 (09:48→21:06)
[2021-12-17] MEDS: CLOPIDOGREL 75 MG (PLAVIX) TABLET PO SCH (09:48)
[2021-12-17] MEDS: MULTIVIT W/MINERALS TAB (THERAGRAN M) PO SCH (09:48)
[2021-12-17] MEDS: SENNA W/DOCUSATE (SENOKOT S) TABLET PO SCH ×2 (09:48→20:59)
[2021-12-17] MEDS: FUROSEMIDE 40 MG (LASIX) TAB PO SCH (09:48)
--- NOTE | 2021-12-17 11:52 | Physical Therapy Evaluation ---
PT Evaluation-General Medical Diagnosis Admission Date Dec 16, 2021 at 14:52 Medical Diagnosis: disuse myopathy Onset Date: Dec 17, 2021 Therapy Diagnosis Therapy Diagnosis: weakness Height/Weight Height (Feet): 5 Height (Inches): 9.00 Weight (Pounds): 200 Precautions Precautions/Isolations: Fall Prevention, Standard Precautions Weight Bear Status Full Weight Bearing Full Weight Bearing Referral Physician: Kyle Lawton Reason for Referral: Evaluation/Treatment Medical History Pertinent Medical History: CABG, CVA, HTN Current History fasciotomy left leg secondary to compartment syndrome Social History Current Living Status: Spouse Prior Prior Level of Function SCALE: Activities may be completed with or without assistive devices. 4-Mclcyelcrl-dolfibx completes the activity by him/herself with no assistance from a helper. 5-Set-up or Clean-up Assistance-helper sets up or cleans up; patient completes activity. [place] assists only prior to or following the activity. 4-Supervision or Touching Assistance-helper provides verbal cues and/or touching/steadying and/or contact guard assistance as patient completes activity. Assistance may be provided throughout the activity or intermittently. 3-Partial/Moderate Assistance-helper does LESS THAN HALF the effort. [place] lifts, holds or supports trunk or limbs, but provides less than half the effort. 2-Substantial/Maximal Assistance-helper does MORE THAN HALF the effort. [place] lifts or holds trunk or limbs and provides more than half the effort. 9-Jqzkbqgyy-faimqx does ALL the effort. Patient does none of the effort to complete the activity. Or, the assistance of 2 or more helpers is required for the patient to complete the activity. If activity was not attempted, code reason: 7-Patient Refused. 9-Not Applicable-not attempted and the patient did not perform the activity b efore the current illness, exacerbation or injury. 10-Not Attempted due to Environmental Limitations-(lack of equipment, weather restraints, etc.). 88-Not Attempted due to Medical Conditions or Safety Concerns. Bed Mobility: 6 Transfers (B,C,W/C): 6 Gait: 6 PT Evaluation-Current Subjective Pt reports he is feeling better today. His primary concern is getting his wound vac to work properly. Objective Patient Orientation: Normal For Age Attachments: Drains ROM/Strength ROM Lower Extremities WFL Strength Lower Extremities Gross 4/5 Transfers Roll Left to Right (QC): 4 Sit to Lying (QC): 4 Lying to Sitting/Side of Bed(Q: 4 Sit to Stand (QC): 4 Chair/Bvo-gw-Qkomr Xfer(QC): 4 Gait Does the Patient Walk?: Yes Mode of Locomotion: Walk Anticipated Mode of Locomotion: Walk Distance: 40 Gait Assistive Device: FWW Comments/Gait Description Ambulate 40ft with FWW and Min A for balance and stability Balance Sitting Static: Good Sitting Dynamic: Good Standing Static: Fair Standing Dynamic: Poor Assessment/Needs Rehab Potential: Good PT Tunnel Elastic Operator Lockstitch Goals Tunnel Elastic Operator Lockstitch Goals PT Tunnel Elastic Operator Lockstitch Goals Time Frame: Dec 23, 2021 Roll Left & Right (QC): 6 Sit to Lying (QC): 6 Lying-Sitting on Side/Bed(QC): 6 Sit to Stand (QC): 6 Chair/Pbs-mn-Kzehy Xfer(QC): 6 Walk 150 ft (QC): 4 1 Step (curb) (QC): 4 PT Plan Problem List Problem List: Activity Tolerance, Functional Strength, Balance, Gait Treatment/Plan Treatment Plan: Continue Plan of Care Treatment Duration: Dec 23, 2021 Frequency: 11 times per week Estimated Hrs Per Day: .25 hour per day Patient and/or Family Agrees t: Yes Safety Risks/Education Patient Education: Gait Training Time/GCodes Time In: 0800 Time Out: 0830 Total Billed Treatment Time: 30 Total Billed Treatment visit, evaluation moderate complexity 30 min ERYN HAWKINS PT Dec 17, 2021 11:52
--- NOTE | 2021-12-17 12:29 | Cardiology Progress Note ---
Progress Note-Cardiology Events since last exam Date Seen by Provider: Dec 17, 2021 Time Seen by Provider: 12:28 Events since last exam We are following him due to coronary artery disease and peripheral vascular disease. He normally follows with Dr. Carrion. He had been transferred to our inpatient rehab unit yesterday but then he was having issues with his wound VAC and refused to participate in rehab. He was then transferred to the medical floor. When I saw him he was sitting up in a chair. His was at the bedside. He denied chest discomfort, dyspnea, palpitations, or syncope. He has mild bilateral lower extremity edema. Certain portions of this document may have been dictated utilizing voice recognition technology. Inherent to this technology, typographical and grammatical errors may exist. As much as I am diligent to identify and correct these mistakes, some errors may remain in the document. Vitals Last set of Vitals Signs Vital Signs Exam Vital Signs Vital Signs Date Time Temp Pulse Resp B/P (MAP) Pulse Ox O2 Delivery O2 Flow Rate FiO2 12/17/21 08:00 36.0 73 18 150/58 (88) 97 Room Air Physical Exam General: Alert. No acute distress. Eye: No xanthelasma. HENT: Normocephalic. Neck: Jugular venous pressure does not appear elevated. Respiratory: Lungs are clear to auscultation. Respirations are non-labored. Breath sounds are equal. Symmetrical chest wall expansion. Cardiovascular: Normal rate. Regular rhythm. No murmur. No gallop. 1+ bilateral edema. Wound VAC is in place on left lower extremity below the knee and appears to be functioning normally. Gastrointestinal: Soft. Normal bowel sounds. Skin: Warm. Dry. Neurologic: Alert and oriented to person, place, time. Cranial nerves 3-11 grossly intact. Psychiatric: Cooperative. Appropriate mood & affect. Labs Laboratory Tests Test 12/16/21 21:00 12/17/21 06:03 12/17/21 12:01 Range/Units Glucometer 135 H 194 H 149 H 70-110 MG/DL Diagnosis/Problems Diagnosis/Problems (1) Coronary artery disease without angina pectoris Assessment & Plan: He is not having any angina at this point in time. Continue aspirin, beta-sam and statin medication. (2) Peripheral arterial disease Assessment & Plan: He had a recent intervention to the left lower extremity that resulted in arterial rupture followed by compartment syndrome which required a fasciotomy. He now has a wound VAC in place. His family would like to see about transferring him to . I explained to them that since this is not an emergency situation, we would likely have to wait until Sunday to see whether or not they would even accept him in transfer. In the interim, he should continue with the wound VAC. (3) Primary hypertension Assessment & Plan: Continue present medication. Blood pressures are intermittently elevated. If this persists, he may need some adjustment to the antihypertensive medication. (4) Mixed hyperlipidemia Assessment & Plan: Continue statin medication. (5) Type 2 diabetes mellitus with complication Assessment & Plan: This is being managed by the hospitalist. ISIS MUIR JR, MD Dec 17, 2021 12:29
[2021-12-17 15:30] VITALS: BP 134/60
--- NOTE | 2021-12-17 16:06 | History & Physical-Hospitalist ---
History of Present Illness HPI/Chief Complaint Guevara Barajas is a 71 year old male with PMH HTN, T2DM, HLD, CAD s/p CABG, history of stroke, PAD, who presented from inpatient rehab after the patient and his family requested transfer. He was recently discharged from [facility] in [place]. He had undergone a vascular procedure for peripheral artery disease and had a complication resulting in arterial rupture. He subsequently developed compartment syndrome of his left leg and underwent fasciotomy. He then suffered a stroke but had no residual deficits. He had a wound vac placed. He was then transferred to [facility] for ongoing therapy and wound care needs. He reports that his wound vac was not placed in a timely manner and then it wasn't working properly for two days. He and his family requested transfer and this was set up to [facility] in [place]. They are now saying that they do not want to go back to [facility] because they had a bad experience there. They are now requesting transfer to a facility in [place]. Source: patient, family Exam Limitations: no limitations Date Seen 12/17/21 Time Seen by a Provider: 10:25 Attending Physician Irvin Broderick MD PCP Kyle Lawton MD Referring Physician Date of Admission Dec 16, 2021 at 14:52 Home Medications & Allergies Home Medications Reviewed patient Home Medication Reconciliation performed by pharmacy medication reconciliations lead technician and/or nursing. Patients Allergies have been reviewed. Allergies Allergies Coded Allergies No Known Drug Allergies (Unverified10/15/11) Past Ojipybd-Vlcvga-Pxqsli Hx Patient Social History Tobacco Use?: No Tobacco type used: Cigarettes Smoking Status: Former Smoker Use of E-Cig and/or Vaping dev: No Substance use?: No Alcohol Use?: Yes Alcohol type: Wine Alcohol Frequency: Once in a while Pt feels they are or have been: No Immunizations Up To Date Date of Influenza Vaccine: Jul 18, 2013 Date of Pneumonia Vaccine: Sep 27, 2011 Current Status Advance Directives: No Communicates: Does Not Communicate Primary Language: [place]i Preferred Spoken Language: [place]i Is interpretation needed?: No Implanted or Applied Medical D: Stents Past Medical History Surgeries: Cardiac, CABG, Vascular Surgery Chronic Edema/Swelling, Coronary Artery Disease, High Cholesterol, Hypotension, Peripheral Vascular, Valvular Heart Disease Stroke Benign Prostatic Hyperpl Gastroesophageal Reflux Arthritis Family Medical History No Pertinent Family Hx Review of Systems Constitutional: no symptoms reported EENTM: no symptoms reported Respiratory: no symptoms reported Cardiovascular: no symptoms reported Gastrointestinal: no symptoms reported Genitourinary: no symptoms reported Musculoskeletal: no symptoms reported Skin: no symptoms reported Psychiatric/Neurological: No Symptoms Reported Physical Exam Physical Exam Vital Signs Vital Signs - First Documented 12/16/21 12/16/21 16:48 17:00 Temp 36.9 Pulse 70 Resp 20 B/P (MAP) 141/65 (90) Pulse Ox 20 O2 Delivery Room Air Capillary Refill : Height, Weight, BMI Height: 5'9.00" Weight: 200lbs. oz. [id number]; 32.27 BMI Method:Stated General Appearance: No Apparent Distress, Obese HEENT: PERRL/EOMI, Pharynx Normal Neck: Normal Inspection, Supple Respiratory: Lungs Clear, Normal Breath Sounds, No Respiratory Distress Cardiovascular: Regular Rate, Rhythm, No Murmur Gastrointestinal: Normal Bowel Sounds, Non Tender, Soft Extremity: No Inflammation; Pedal Edema, Swelling (left leg swollen, wound vac in place) Neurologic/Psychiatric: Alert, Oriented x3, Motor Weakness Skin: Normal Color, Warm/Dry Results Results/Procedures Labs Patient resulted labs reviewed. Imaging: Reviewed Imaging Report Assessment/Plan Admission Diagnosis Myopathy Admission Status: Observation Reason for Inpatient Admission: Wound vac care Assessment and Plan Myopathy Peripheral artery disease Arterial rupture Compartment syndrome s/p fasciotomy Stroke Wound vac Wound care consulted PT/OT Transfer arranged to [facility] on Sunday, family now refusing Requesting transfer to facility in the area Social work consulted HTN HLD CAD s/p CABG T2DM Continue home meds Add sliding scale insulin DVT prophylaxis: Lovenox Diagnosis/Problems Diagnosis/Problems (1) Myopathy Status: Acute (2) PAD (peripheral artery disease) Status: Acute (3) Arterial rupture Status: Acute (4) Compartment syndrome of left lower extremity Status: Acute Qualifiers: Encounter type: subsequent encounter Qualified Codes: T79.A22D - Traumatic compartment syndrome of left lower extremity, subsequent encounter (5) History of fasciotomy Status: Acute (6) Stroke Status: Acute (7) HTN (hypertension) Status: Chronic (8) HLD (hyperlipidemia) Status: Chronic (9) T2DM (type 2 diabetes mellitus) Status: Chronic (10) CAD (coronary artery disease) Status: Chronic (11) S/P CABG (coronary artery bypass graft) Status: Chronic IRVIN BRODERICK MD Dec 17, 2021 16:06
[2021-12-17] MEDS: ENOXAPARIN 40 MG/0.4 ML (LOVENOX) SYR SC SCH (17:12)
[2021-12-17 20:55] VITALS: BP 134/58
[2021-12-17] MEDS: ALLOPURINOL 300 MG (ZYLOPRIM) TAB PO SCH (20:59)
[2021-12-17 23:44] VITALS: BP 108/54
[2021-12-18 06:06] LABS: HEMOGLOBIN 9.3 g/dL (13.3-17.7)
[2021-12-18 06:20] LABS: POTASSIUM 4.2 MMOL/L (3.6-5.0)
[2021-12-18 06:21] LABS: CALCIUM 8.4 MG/DL (8.5-10.1)
[2021-12-18] MEDS: inSUlin ASPART (NovoLOG) 1 UNIT/0.01 ML (CHARGE PER UNIT) SC SCH ×4 (06:21→20:34)
[2021-12-18 06:26] LABS: CREATININE SERUM 1.13 MG/DL (0.60-1.30)
[2021-12-18] MEDS: DOXYCYCLINE 100 MG (VIBRAMYCIN) TABLET PO SCH ×2 (06:30→16:10)
[2021-12-18] MEDS: GLIMEPIRIDE 4 MG (AMARYL) TAB PO SCH (06:30)
[2021-12-18 07:25] VITALS: BP 127/61
[2021-12-18] MEDS: FUROSEMIDE 40 MG (LASIX) TAB PO SCH (10:47)
[2021-12-18] MEDS: CLOPIDOGREL 75 MG (PLAVIX) TABLET PO SCH (10:47)
[2021-12-18] MEDS: ASPIRIN E.C. 81 MG (ECOTRIN) TAB PO SCH (10:47)
[2021-12-18] MEDS: MULTIVIT W/MINERALS TAB (THERAGRAN M) PO SCH (10:47)
[2021-12-18] MEDS: lisINopril 20 MG (PRINIVIL) TABLET PO SCH (10:47)
[2021-12-18] MEDS: polyethylene glycoL POWDER 17 GM (MIRALAX) PACK PO SCH ×2 (10:50→21:00)
[2021-12-18] MEDS: SENNA W/DOCUSATE (SENOKOT S) TABLET PO SCH ×2 (10:53→21:06)
[2021-12-18 15:32] VITALS: BP 126/50
[2021-12-18] MEDS: ENOXAPARIN 40 MG/0.4 ML (LOVENOX) SYR SC SCH (16:10)
--- NOTE | 2021-12-18 16:47 | Progress Note - Hospitalist ---
Subjective HPI/CC On Admission Date Seen by Provider: Dec 18, 2021 Time Seen by Provider: 12:10 Guevara Barajas is a 71 year old male with PMH HTN, T2DM, HLD, CAD s/p CABG, history of stroke, PAD, who presented from inpatient rehab after the patient and his family requested transfer. He was recently discharged from [facility] in [place]. He had undergone a vascular procedure for peripheral artery disease and had a complication resulting in arterial rupture. He subsequently developed compartment syndrome of his left leg and underwent fasciotomy. He then suffered a stroke but had no residual deficits. He had a wound vac placed. He was then transferred to [facility] for ongoing therapy and wound care needs. He reports that his wound vac was not placed in a timely manner and then it wasn't working properly for two days. He and his family requested transfer and this was set up to [facility] in [place]. They are now saying that they do not want to go [facility] to [facility] because they had a bad experience there. They are now requesting transfer to a facility in [place]. Subjective/Events-last exam He is doing better today. He has been up and walking. His leg swelling is improving. He has no complaints. Objective Exam Vital Signs Vital Signs Date Time Temp Pulse Resp B/P (MAP) Pulse Ox O2 Delivery O2 Flow Rate FiO2 12/18/21 15:32 36.0 68 20 126/50 (75) 97 Room Air Capillary Refill : General Appearance: No Apparent Distress, Obese Respiratory: Lungs Clear, No Respiratory Distress Cardiovascular: Regular Rate, Rhythm, No Murmur Gastrointestinal: Normal Bowel Sounds, Soft Extremity: No Pedal Edema, Other (left leg fasciotomy wounds with wound vac in place, no surrounding erythema, left knee slight erythema and warmth) Neurologic/Psychiatric: Alert, Normal Mood/Affect Skin: Warm/Dry, Other (wound vac left leg) Results/Procedures Lab Laboratory Tests 12/18/21 05:14 Patient resulted labs reviewed. Imaging: Reviewed Imaging Report Assessment/Plan Assessment and Plan Assess & Plan/Chief Complaint Myopathy Peripheral artery disease Arterial rupture Compartment syndrome s/p fasciotomy Stroke Wound vac Wound care consulted PT/OT Transfer arranged to [facility] on Sunday, family agreeable to transfer Social work consulted HTN HLD CAD s/p CABG T2DM Continue home meds Sliding scale insulin DVT prophylaxis: Lovenox Diagnosis/Problems Diagnosis/Problems (1) Myopathy Status: Acute (2) PAD (peripheral artery disease) Status: Acute (3) Arterial rupture Status: Acute (4) Compartment syndrome of left lower extremity Status: Acute Qualifiers: Encounter type: subsequent encounter Qualified Codes: T79.A22D - Traumatic compartment syndrome of left lower extremity, subsequent encounter (5) History of fasciotomy Status: Acute (6) Stroke Status: Acute (7) HTN (hypertension) Status: Chronic (8) HLD (hyperlipidemia) Status: Chronic (9) T2DM (type 2 diabetes mellitus) Status: Chronic (10) CAD (coronary artery disease) Status: Chronic (11) S/P CABG (coronary artery bypass graft) Status: Chronic IRVIN BRODERICK MD Dec 18, 2021 16:47
[2021-12-18] MEDS: metFORMIN XR 500 MG (GLUCOPHAGE XR) TAB PO SCH (16:59)
--- NOTE | 2021-12-18 17:42 | Progress Note ---
Standard Progress Note Progress Notes/Assess & Plan Date Seen by a Provider: Dec 18, 2021 Time Seen by a Provider: 17:41 Progress/Assessment & Plan The patient has decided to transfer to inpatient rehabilitation at [facility] tomorrow. His cardiac status appears to have stabilized and I do not have any new recommendations at this time. I just stopped by today for a courtesy consult. ISIS MUIR JR, MD Dec 18, 2021 17:42
[2021-12-18] MEDS: ALLOPURINOL 300 MG (ZYLOPRIM) TAB PO SCH (21:06)
[2021-12-18 23:27] VITALS: BP 114/56
[2021-12-19] MEDS: inSUlin ASPART (NovoLOG) 1 UNIT/0.01 ML (CHARGE PER UNIT) SC SCH (06:00)
[2021-12-19] MEDS: DOXYCYCLINE 100 MG (VIBRAMYCIN) TABLET PO SCH (07:01)
[2021-12-19] MEDS: GLIMEPIRIDE 4 MG (AMARYL) TAB PO SCH (07:01)
[2021-12-19 08:00] VITALS: BP 144/68
--- NOTE | 2021-12-19 08:50 | Cardiology Progress Note ---
Subjective Date Seen by Provider: Dec 19, 2021 Time Seen by Provider: 08:48 Subjective/Events-last exam Patient is sitting up in chair, no new complaints. Planning for transfer to [facility] Review of Systems General: No Chills, No Night Sweats, No Fatigue, No Malaise, No Appetite, No Other HEENT: No Head Aches, No Visual Changes, No Eye Pain, No Ear Pain, No Dysphasia, No Sinus Congestion, No Post Nasal Drip, No Sore Throat, No Other Pulmonary: No Dyspnea, No Cough, No Pleuritic Chest Pain, No Other Objective-Cardiology Exam Last Set of Vital Signs Vital Signs 12/19/21 08:00 Temp 36.0 Pulse 70 Resp 20 B/P (MAP) 144/68 (93) Pulse Ox 94 O2 Delivery Room Air I&O Intake and Output 12/19/21 00:00 Intake Total 1275 ml Output Total 1700 ml Balance -425 ml Intake Oral 1275 ml Output Urine Total 1700 ml # Voids 2 General: Alert, Oriented X3 HEENT: Atraumatic Neck: Supple, No JVD Lungs: Clear to Auscultation, Normal Air Movement Heart: Regular Rate, Normal S1, Normal S2 Abdomen: Soft, No Tenderness Extremities: No Clubbing, Other (Wound vac in place to E) Skin: No Rashes Neuro: Normal Speech, Strength at 5/5 X4 Ext Psych/Mental Status: Mental Status NL A/P-Cardiology Admission Diagnosis Compartment syndrome CAD PAD HTN Assessment/Plan Status post compartment syndrome after rupture of the left peroneal artery, underwent emergency surgical repair. Has an open wound on the left leg with wound VAC. Peripheral arterial disease, status post left peroneal atherectomy complicated by fracture of the CSI wire and vessel rupture on 12/09/2021. Covered stent was deployed to the popliteal and peroneal artery to provide single-vessel runoff. Had left leg fasciotomy with wound VAC placement by Dr. Isaac on 12/09/2021. History of stenting of the right lower extremity by Dr. Christie earlier in November 2021 Continue with physical therapy. Coronary artery disease, history of CABG x5 done over [address] Isaac Cardiac catheterization was carried out by Dr. Christie on 12/09/2021 reported as left main has distal 90% stenosis leading into a large circumflex system that fed several small obtuse marginal branches underwent balloon angioplasty with reduction of the lesion to 30% residual stenosis. The LAD has 80 to 90% proximal stenosis and was occluded beyond the small proximal diagonal vessel. The TORRES to the LAD is patent with diffuse 50 to 60% stenosis beyond the graft. The right coronary artery is occluded and the vein graft to the right coronary artery has diffuse disease. There are 2 vein grafts were occluded. Right leg angiography showed 30 to 40% proximal common iliac stenosis, the right SFA has 30% proximal stenosis, 25 to 30% distal stenosis and was not well visualized beyond the knee Left leg angiography mild iliac disease, the left proximal SFA has 60% stenosis reduced to 30% followed balloon angioplasty and severe stenosis distally, attempt for intervention resulted in rupture of the peroneal artery as described above. Hypertension, controlled, continue to monitor. Hyperlipidemia, monitor lipids History of CVA in the year 1999 and 2004 with residual weakness on the right side and the left side. History of carotid stenosis following with Dr. Isaac Diabetes mellitus, followed and managed by primary care physician Supervisory-Addendum Brief Supervisory Addendum Participated in pt care: history, MDM, physical Personally performed: exam, history, MDM Care discussed with: DENEEN Results interpretation: Verified all documentation Notes: Patient was seen and evaluated note are reviewed and made few minor adjustments Patient was seen at bedside, sitting comfortably, feeling better, swelling in his leg is better Denied any chest pain or shortness of breath Continue on current treatment, continue wound VAC and physical therapy Possible transfer to [facility] today. SHELBY CEBALLOS Dec 19, 2021 08:50 JORJE MARIE MD Dec 19, 2021 09:39
[2021-12-19] MEDS ORDERED: HYDROcodone/APAP 5 MG/325 MG (LORTAB) TAB PO SCH (09:00)
[2021-12-19] MEDS: polyethylene glycoL POWDER 17 GM (MIRALAX) PACK PO SCH (09:08)
[2021-12-19] MEDS: ASPIRIN E.C. 81 MG (ECOTRIN) TAB PO SCH (09:08)
[2021-12-19] MEDS: FUROSEMIDE 40 MG (LASIX) TAB PO SCH (09:08)
[2021-12-19] MEDS: MULTIVIT W/MINERALS TAB (THERAGRAN M) PO SCH (09:08)
[2021-12-19] MEDS: SENNA W/DOCUSATE (SENOKOT S) TABLET PO SCH (09:08)
[2021-12-19] MEDS: lisINopril 20 MG (PRINIVIL) TABLET PO SCH (09:09)
[2021-12-19] MEDS: CLOPIDOGREL 75 MG (PLAVIX) TABLET PO SCH (09:09)
--- NOTE | 2021-12-19 12:03 | Discharge Summary ---
Diagnosis/Chief Complaint Date of Admission Dec 16, 2021 at 14:52 Date of Discharge Discharge Date: Dec 19, 2021 Admission Diagnosis Myopathy Primary Care Kyle Lawton MD Discharge Diagnosis (1) Myopathy Status: Acute (2) PAD (peripheral artery disease) Status: Acute (3) Arterial rupture Status: Acute (4) Compartment syndrome of left lower extremity Status: Acute (5) History of fasciotomy Status: Acute (6) Stroke Status: Acute (7) HTN (hypertension) Status: Chronic (8) HLD (hyperlipidemia) Status: Chronic (9) T2DM (type 2 diabetes mellitus) Status: Chronic (10) CAD (coronary artery disease) Status: Chronic (11) S/P CABG (coronary artery bypass graft) Status: Chronic Discharge Summary Discharge Physical Exam Allergies: Coded Allergies: No Known Drug Allergies (Unverified , 10/15/11) Vitals & I&Os Vital Signs Date Time Temp Pulse Resp B/P (MAP) Pulse Ox O2 Delivery O2 Flow Rate FiO2 12/19/21 11:14 12/19/21 08:00 36.0 70 20 94 Room Air General Appearance: No Apparent Distress, WD/WN Cardiovascular: Regular Rate, Rhythm, No Murmur Extremity: Other (wound vac in place on right leg) Neurologic/Psychiatric: Alert Hospital Course Patient was admitted to the hospital after discharge from inpatient rehab due to dissatisfaction with services. He requested transfer back to [facility] for inpatient rehab and this was arranged. I did speak with the physician at [facility] and updated on case who accepted patient in transfer. He was discharged to transfer by private vehicle in stable condition. Labs (last 24 hrs) Laboratory Tests 12/18/21 15:31: Glucometer 179H 12/18/21 17:24: Influenza Type A (RT-PCR) Not Detected, Influenza Type B (RT-PCR) Not Detected, SARS-CoV-2 RNA (RT-PCR) Not Detected 12/18/21 20:14: Glucometer 132H 12/19/21 05:13: Glucometer 89 Patient resulted labs reviewed. Pending Labs Laboratory Tests 12/19/21 05:13: Glucometer 89 Imaging: Reviewed Imaging Report Discussion & Recommendations Discharge Planning: >30 minutes discharge planning Discharge Home Medications: Active Scripts Active Reported Mupirocin (Mupirocin Calcium) 15 Gm Cream..g. 1 Applic TP TID PRN APPLICATION SITE NOT DISCLOSED ON DISCHARGE ORDERS Clopidogrel (Clopidogrel Bisulfate) 75 Mg Tablet 75 Mg PO DAILY Multivitamins with Minerals (Multivitamin with Minerals) 1 Each Tablet 1 Each PO DAILY Lutein 20 Mg Tablet 20 Mg PO DAILY Aspirin EC (Aspirin) 81 Mg Tablet.dr 81 Mg PO DAILY Naproxen 500 Mg Tablet 500 Mg PO BID PRN Metformin HCl ER (Metformin HCl) 750 Mg Tab.er.24h 750 Mg PO HS Glimepiride 4 Mg Tablet 4 Mg PO DAILY Lisinopril 20 Mg Tablet 20 Mg PO DAILY Carvedilol 25 Mg Tablet 25 Mg PO BID Eplerenone 50 Mg Tablet 50 Mg PO DAILY Furosemide 40 Mg Tablet 40 Mg PO DAILY Allopurinol 300 Mg Tablet 300 Mg PO HS Loratadine 10 Mg Tablet 10 Mg PO DAILY PRN Atorvastatin Calcium 80 Mg Tablet 80 Mg PO DAILY Instructions to patient/family Please see electronic discharge instructions given to patient. Problem Qualifiers (1) Compartment syndrome of left lower extremity: Encounter type: subsequent encounter Qualified Codes: T79.A22D - Traumatic compartment syndrome of left lower extremity, subsequent encounter NISH BOWIE MD Dec 19, 2021 12:03
--- NOTE | 2021-12-19 17:15 | Progress Note ---
Subjective Date Seen by Provider: Dec 19, 2021 Time Seen by Provider: 10:30 Subjective/Events-last exam Called to patient room to visualize removal of wound vac prior to transfer to [facility] unit. Patient requested transfer due to dissatisfaction with our services at this hospital. Patient was admitted on December 15 and initial wound was assessed and wound vac placed around 1700. I am uncertain where the breakdown in communication and distrust began in this patient's care. He did have an unexpected adverse outcome that was a result of an arterial intervention at [facility]. I did see his as an outpatient and initially made the cardiology referral after abnormal arterial studies. Following his arterial perforation, he developed compartment syndrome and underwent fasciotomies. Upon presentation to our facility, his wound bed was pink and oozing serosanguinous drainage. He did require transfusion at [facility] but his labs remained stable throughout his stay at our facility. After my initial evaluation (please see my note on the inpatient rehab chart) I spent time discussing his care and answering questions of the patient. My wound vac nurse was also present for this interaction as well as a medical student and wound vac orders were initiated. We did decide to place adaptic over the muscle for protection due to inflammation as well as white foam overlying exposed tendon (on both wounds). I do not know if this was a part of his care prior to presenting at our facility. The wound vac was placed without incident and achieved adequate suction. It was quite soon thereafter that Mr. Barajas became getting concerned. In our system it was documented that nursing and other staff visited his room 8 times throughout the evening/night of 12/15 to morning of 12/16 to reassure the patient in regards to his wound vac, measure his calf and discuss his care with the supervising physician. His main concern seemed to be lesser drainage than he experienced whi le admitted to [facility]. This is to be expected with the wound being not immediately post op and with the addition of white foam and adaptic. The wound vac continued to function without loss of suction or leak and drainage continued to accumulate in the canister. His swelling also began to improve as well. He repeatedly threatened to "raise montiel" as well as bring his family in to do so as well. He verbalized concern that there was a delay in wound vac placement and a concern that blood was "pooling in his leg and tissue was dying". His wound vac was placed in a very reasonable time frame on the day of admission. His wet to dry dressings remained in place until I saw him that day and the wound appeared healthy in appearance. I did start empiric doxycycline after he mentioned pain and increased swelling. I did not observe obvious signs of infection in the wound bed itself but patient clearly had concerns and thus empiric therapy initiated as such. I was called to the bedside the following morning after family had further concerns (and negative interactions with staff). Again, I answered all questions and reassured patient that I saw no causes for concern. The patient and thanked me for my good bedside manner and I offered to remove the wound vac and reassess the wound (before the weekend) and they declined. Again, I reiterated their right to transfer should they so desire (AMA also offered to them repeatedly throughout their stay). I did head downstairs with a nurse to attempt to answer any questions their daughter might have as well. She asked me upon meeting me when her parents were leaving and I stated that they were discussing whether or not to stay and would let us know. She then stated "What did you say to him to make him want to stay?" I told her that I my only interaction was to answer their questions and reassure them in regards to the wound vac. She left without comment at that time. After I left, it seems he was declining PT and OT and was transferred to [facility] surgery as a result. Over the weekend, he was closely monitored by staff and his care was managed by Dr. Hassan. At one point they verbalized a desire to transfer to instead of [facility] due to a bad experience at [facility] and a desire for a "hospital that has staff that knows what they are doing". They requested acute care and were advised he was not a candidate for acute emergent transfer and that most rehab units don't take transfers on the weekend. Again, AMA paperwork offered and declined. Today, his wound vac was properly function with appropriate suction. The canister contains approximately 650ml of serosanguinous drainage. His wounds are both improved. The inflammation of muscle is resolved and there is no longer protrusion of muscle above the level of existing skin. Bilaterally, the tendons are only minimally exposed and there is new granulation tissue as would be desired with wound vac therapy. I am quite pleased with the progress he has made in his brief stay at our facility despite his many concerns and his distrust with our care. His lower extremity swelling is improved as well and his CR is <3s with pink, warm digits. Wound assessment: 1. Medial: [id number] (12 O'clock). The epithelialization is none, there is no tunneling or undermining, drainage is medium and serosanguinous, granulation is large and pink, necrotic is small and slough. The wound margins are flat. 2. Lateral: 21x3.2x0.5cm. The epithelialization is none, there is no tunneling or undermining, drainage is medium and serosanguinous, granulation is large and pink, necrotic is small and slough. The wound margins are flat. Review of Systems General: No Chills, No Night Sweats, No Fatigue, No Malaise, No Appetite, No Other HEENT: No Head Aches, No Visual Changes, No Eye Pain, No Ear Pain, No Dysphasia, No Sinus Congestion, No Post Nasal Drip, No Sore Throat, No Other Pulmonary: No Dyspnea, No Cough, No Pleuritic Chest Pain, No Other Objective Exam Last Set of Vital Signs Vital Signs Date Time Temp Pulse Resp B/P (MAP) Pulse Ox O2 Delivery O2 Flow Rate FiO2 12/19/21 11:14 12/19/21 08:00 36.0 70 20 94 Room Air Capillary Refill : I&O Intake and Output 12/19/21 00:00 Intake Total 1275 ml Output Total 1700 ml Balance -425 ml Intake Oral 1275 ml Output Urine Total 1700 ml # Voids 2 General: Alert, Oriented X3 Extremities: Other (Wound vac in place to LLE) Neuro: Normal Speech Psych/Mental Status: Mental Status NL Results Lab Laboratory Tests 12/18/21 17:24: Influenza Type A (RT-PCR) Not Detected, Influenza Type B (RT-PCR) Not Detected, SARS-CoV-2 RNA (RT-PCR) Not Detected 12/18/21 20:14: Glucometer 132H 12/19/21 05:13: Glucometer 89 Assessment/Plan Assessment/Plan Assess & Plan/Chief Complaint 1. Bilateral fasciotomies following compartment syndrome 2. Peripheral Arterial disease 3. Dissatification with services Plan: 1. Removal of wound vac 2. Saline wet to dry gauze packing 3. Transfer to [facility] rehab for continued wound care services Please note that quotes from above are both from my own interactions with the patient as well as nursing and physician interactions from elsewhere in the chart. JAMAICA MATHEWS MD Dec 19, 2021 17:15
== END 2021-12-19 10:54 | DRG 92 ==
LOC: 4TH 14:52
PROVIDERS: ADMIT Internal Medicine; ATTEND Internal Medicine
DX: G72.89 Other specified myopathies (principal); I25.810 Atherosclerosis of coronary artery bypass graft(s) without angina pectoris; I69.354 Hemiplegia and hemiparesis following cerebral infarction affecting left non-dominant side; I69.351 Hemiplegia and hemiparesis following cerebral infarction affecting right dominant side; Z48.817 Encounter for surgical aftercare following surgery on the skin and subcutaneous tissue; I25.10 Atherosclerotic heart disease of native coronary artery without angina pectoris; I73.9 Peripheral vascular disease, unspecified; I10 Essential (primary) hypertension; E78.2 Mixed hyperlipidemia; E78.00 Pure hypercholesterolemia, unspecified; E11.9 Type 2 diabetes mellitus without complications; Z20.822 Contact with and (suspected) exposure to COVID-19; N40.0 Benign prostatic hyperplasia without lower urinary tract symptoms; K21.9 Gastro-esophageal reflux disease without esophagitis; M19.91 Primary osteoarthritis, unspecified site; Z87.891 Personal history of nicotine dependence; Z95.5 Presence of coronary angioplasty implant and graft; Z95.1 Presence of aortocoronary bypass graft
CPT/HCPCS: 36415; 80048; 82947; 85014; 85018; 87636

== ENCOUNTER 2022-04-11 12:44 | Outpatient (RCR) | payer MEDICARE ==
[~2022-04-11] VITALS: Wt 90.0 kg
[2022-04-11 12:50] VITALS: BP 140/69
[2022-04-11] MEDS ORDERED: FERRIC CARBOXYMALTOSE INJ 750 MG in NS (IVPB) 250 ML IV SCH (13:00)
== END 2022-04-16 | disposition home or self-care (01) ==
LOC: SDC 12:44
PROVIDERS: ATTEND Internal Medicine
DX: D50.9 Iron deficiency anemia, unspecified (principal)
CPT/HCPCS: 96365

== ENCOUNTER 2022-04-18 12:50 | Outpatient (RCR) | payer MEDICARE ==
[2022-04-18] MEDS ORDERED: FERRIC CARBOXYMALTOSE INJ 750 MG in NS (IVPB) 250 ML IV SCH (13:00)
[2022-04-18 13:29] VITALS: BP 135/76
== END 2022-05-17 | disposition home or self-care (01) ==
LOC: SDC 12:50
PROVIDERS: ATTEND Internal Medicine
DX: D50.9 Iron deficiency anemia, unspecified (principal)
CPT/HCPCS: 96365